=== PATIENT | female | born 1950 | race Caucasian/White ===

== ENCOUNTER 2016-12-12 13:54 | Emergency (ER) | payer MEDICARE ==
[2016-12-12 14:21] VITALS: BP 96/65
--- NOTE | 2016-12-12 14:59 | UC ---
Abdominal Pain Female HPI - HPI Summary HPI Summary: 66 year old presents with acute abdomen. I will send her to the ER. - History of Current Complaint Chief Complaint: UCAbdominalPain Stated Complaint: ABD PAIN/KIDNEY STONES Time Seen by Provider: 12/12/16 14:56 Allergies/Adverse Reactions: Allergies Allergy/AdvReac Type Severity Reaction Status Date / Time Codeine Allergy PASSED OUT Verified 12/12/16 14:06 Diphenhydramine Allergy Swelling Verified 12/12/16 14:06 [From Benadryl] Home Medications: Home Medications Spiriva Inhaler DEVICE* [Tiotropium Inhaler DEVICE*] 1.25 mcg INH DAILY [History Confirmed 12/12/16] buPROPion TAB* [Wellbutrin TAB*] 75 mg PO BID 12/12/16 [History Confirmed ] PMH/Surg Hx/FS Hx/Imm Hx - Surgical History Surgical History: Yes Surgery Procedure, Year, and Place: EXPLORATORY LAPAROTOMY. APPENDECTOMY. CARPAL TUNNEL RELEASE. TUBAL LIGATION. PER DR. BRADLEY'S NOTE. GALL BLADDER REMOVAL - Family History Known Family History: Positive: None - Social History Alcohol Use: None Alcohol Amount: Sober 7 years Substance Use Type: None Smoking Status (MU): Former Smoker Type: Cigarettes Amount Used/How Often: 1/2 PPD Length of Time of Smoking/Using Tobacco: 52 Years Have You Smoked in the Last Year: Yes When Did the Patient Quit Smoking/Using Tobacco: 12/03/16 - Immunization History Most Recent Influenza Vaccination: 2015 Most Recent Tetanus Shot: UTD Most Recent Pneumonia Vaccination: APR 2015 Review of Systems Constitutional: Negative Skin: Negative Eyes: Negative ENT: Negative Respiratory: Negative Cardiovascular: Negative Gastrointestinal: Abdominal Pain Genitourinary: Negative Motor: Negative Neurovascular: Negative Musculoskeletal: Negative Neurological: Negative Psychological: Negative All Other Systems Reviewed And Are Negative: Yes Physical Exam Triage Information Reviewed: Yes Vital Signs: Initial Vital Signs Temp 36.6 C 12/12/16 14:10 Pulse 84 12/12/16 14:10 Resp 18 12/12/16 14:10 BP 96/65 12/12/16 14:10 Pulse Ox 95 12/12/16 14:10 Eye Exam: Normal ENT Exam: Normal Dental Exam: Normal Neck exam: Normal Neck: Positive: 1 Respiratory Exam: Normal Cardiovascular Exam: Normal Abdomen Description: Positive: Distended, Peritoneal Signs Musculoskeletal Exam: Normal Neurological Exam: Normal Psychological Exam: Normal Skin Exam: Normal Abd Pain Female Course/Dx - Differential Dx/Diagnosis Provider Diagnoses: ACUTE ABDOMEN Discharge - Discharge Plan Condition: Guarded Disposition: AGAINST MEDICAL ADVICE Patient Education Materials: Acute Abdominal Pain (ED) Referrals: Daniel Verde DO [Primary Care Provider] -
== END 2016-12-12 15:05 | disposition left against medical advice (07) ==
LOC: UCCORT 13:54
DX: R10.0 Acute abdomen (principal); Z88.5 Allergy status to narcotic agent; Z88.8 Allergy status to other drugs, medicaments and biological substances; Z87.891 Personal history of nicotine dependence
CPT/HCPCS: 81003; 87086; 99213; G0463

== ENCOUNTER 2017-05-03 10:00 | Emergency (ER) | payer MEDICARE ==
[2017-05-03 11:27] VITALS: BP 126/68
== END 2017-05-03 11:34 | disposition left against medical advice (07) ==
LOC: UCCORT 10:00
DX: R09.89 Other specified symptoms and signs involving the circulatory and respiratory systems (principal); R05 Cough; H92.09 Otalgia, unspecified ear; Z53.21 Procedure and treatment not carried out due to patient leaving prior to being seen by health care provider

== ENCOUNTER 2018-02-12 18:29 | Emergency (ER) | payer MEDICARE ==
--- OUTSIDE RECORDS SUMMARY | 2018-02-12 18:46 | XMS REPORT ---
:1950 External Reference #:[id number] Author Organization [facility] Address [address] [address] Phone [phone] Care Team Providers Name Role Phone Jazmine Cabrera PA Care Team Information Specialties Operator Unavailable Payers Type Date Identification Numbers Payment Provider Subscriber Commercial Expires: Policy Number: BCBS o Sanna Flores 2009 [id number] Group Number: [id number] [address] [address] PayID: [id number] SAMMY Banegas [phone] Medigap Part B Effective: 2014 Policy Number: [id number] Medicare Sanna Flores Group Name: [facility] [address] PayID: [id number] [place] [address] Medigap Part B Effective: Policy Number: [facility] Sanna Flores 2014 [id number] Options PayID: [id number] [address] [place] [address] Problems Date Description Provider Status Onset: 03/17/2013 Nondependent alcohol abuse in remission Daniel Verde DO Active Onset: 03/17/2013 Chronic obstructive lung disease Daniel Verde DO Active Onset: 03/17/2013 Insomnia Daniel Verde DO Active Onset: 07/15/2010 Menopausal and postmenopausal disorders Daniel Verde DO Active Onset: 07/15/2010 Vitamin D deficiency Daniel Verde DO Active Onset: 02/28/2005 Moderate major depression, single Daniel Verde DO Active episode Onset: 02/28/2005 Panic disorder without agoraphobia Daniel Verde DO Active Onset: 02/28/2005 Generalized anxiety disorder Daniel Verde DO Active Onset: 02/28/2005 Benign essential hypertension Daniel Verde DO Active Onset: 02/28/2005 Mixed hyperlipidemia Daniel Verde DO Active Onset: 08/22/2014 Gastroesophageal reflux disease Daniel Verde DO Active Onset: 08/22/2014 Diaphragmatic hernia Daniel Verde DO Active Onset: 08/22/2014 Moderate recurrent major depression Daniel Verde DO Active Onset: 08/22/2014 Tobacco user Daniel Verde DO Active Onset: 08/22/2014 Alcohol abuse Daniel Verde DO Active Onset: 03/18/2016 Degenerative joint disease involving Daniel Verde DO Active multiple joints Onset: 09/21/2012 Essential hypertension Active Onset: 09/21/2009 Chronic alcoholism in remission Active Onset: 09/21/2005 Hypercholesterolemia Active Onset: 09/21/1994 Anxiety disorder Active Onset: 09/21/1992 Panic disorder Active Onset: 09/21/1969 Tobacco dependence syndrome Active Onset: 01/17/2015 Esophagitis Active Family History Date Family Member(s) Problem(s) Comments Maternal Grandmother [place] Social History Type Date Description Comments Marital Status Occupation Retired Smoking Patient is a former smoker QUIT 11/26/16 Smoking 12/2016 Patient is a current smoker, STARTED SMOKING AGAIN -10 smokes every day CIGS PER DAY Daily Caffeine Consumes on average 3 cups of coffee per day General Hx Text Allergies, Adverse Reactions, Alerts Date Description Reaction Status Severity Comments 08/07/2014 Codeine active Passed Out 08/07/2014 Benadryl active Swelling. 06/02/2010 Diphenhydramine HCL active Medications Medication Date Status Form Strength Qnty SIG Indications Ordering Provider Nitrofurantoin 02/09 Hx Capsules 100mg 14cap 1 by mouth R30.0 Digiovann Monohyd Macro s twice a a, - day for 7 Ibeth, 02/16 days Phenazopyridine 02/09 Hx Tablets 200mg 6tabs 1 by mouth R30.0 Digiovann HCL /2017 3x/day a, - with food Ibeth, 02/11 for 2 days Ventolin HFA 08/03 Active Aerosol 108(90Bas 8gm 2 puffs Ascencio, /2018 e) every 4-6 Mike, mcg/Act hours as DO needed for cough, wheezing, shortness of breath Bupropion HCL ER 08/03 Active Tablets ER 150mg 60tab 1 tablet Ascencio, (Smoking Det) 12HR s twice Mike, daily DO Fluticasone 05/11 Active Suspension 50mcg/Act 15.80 two sprays H92.01 Ascencio, 0ml in each Mike, nostril DO once daily Combivent 01/24 Active Aerosol 20-100mcg 1unit 1 puff by [email or web address] Ammon, Respimat /2014 /Act s mouth four Daniel, times a DO day Trazodone HCL 11/07 Active Tablets 50mg 90tab take one G47.00 Ascencio, s tablets by Mike, mouth at DO bedtime Omeprazole 08/[address] 40mg 180ca take two K21.0 Ascencio, ps capsules Mike, by mouth DO every day Losartan 06/13 Active Tablets 100-25mg 90tab take one I10 Ascencio, Potassium/Hydroch s tablet by Mike, lorothiazide mouth DO every day Atorvastatin 06/13 Active Tablets 40mg 90tab take one E78.2 Ascencio, Calcium /2014 s tablet by Mike, mouth DO every day Duloxetine HCL Active Caps DR 60mg 180ca 1 by mouth F41.1 Ascencio, / Part ps twice a Mike, day DO F33.1 Quetiapine Active Tablets 25mg 90tabs take one F33.1 Ascencio, Fumarate tablet by Mike, DO mouth at bedtime F41.1 Tizanidine HCL Active Tablets 2mg 30tabs 1 by mouth Ascencio, tid prn Mike, DO Nabumetone Active Tablets 750mg 1 by mouth [place] daily with [facility] Spiriva 07/20/2017 - Hx Aerosol 2.5mcg 4gm 2 puffs in Ascencio, Respimat 11/11/2017 /Act the Mike, DO morning Bupropion HCL 11/24/2016 - Hx Tablets ER 150mg 60tabs Take One Z87 Ammon, ER (SR) 08/03/2017 12HR Tablet By .89 Daniel, DO Mouth 1 Twice Daily F41.1 Bactrim DS 02/26/2016 - Hx Tablets 800-160mg 20tabs 1 by mouth N20.0 Ammon, 03/18/2016 twice a Daniel, day DO Prednisone 11/20/2015 - Hx Tablets 10mg 30tabs 4 by mouth M54.31 Digiovanna, 12/02/2015 every d x Ibeth, 3 days [employer] then 3 by mouth every d x 3 then 2 by mouth every d x 3 then 1 by mouth every d x 3 then stop Naproxen 11/06/2015 - Hx Tablets 550mg 60tabs take one M51.06 Ammon, Sodium 08/14/2016 tablet by Daniel, mouth DO twice a day with food Gabapentin 09/07/2015 - Hx Capsules 100mg 30caps 1 by mouth M51.06 Ammon, 03/30/2017 at bedtime DO Daniel Prednisone 08/28/2015 - Hx Tablets 10mg QS 4 by mouth M54.31 Ammon, 09/09/2015 every d x Daniel, 3 days DO then 3 by mouth every d x 3 then 2 by mouth every d x 3 then 1 by mouth every d x 3 then stop Gabapentin 08/28/2015 - Hx Capsules 300mg 30caps take one M54.31 Ammon , 09/07/2015 capsule by Daniel, mouth once DO at bedtime Zithromax 06/07/2015 - Hx Tablets 500mg 7tabs 1 by mouth H65.03 Ammon, 08/28/2015 every day DO Daniel Medrol (Tate) 06/07/2015 - Hx Tablets 4mg 21tabs use as H65.03 Ammon, 08/28/2015 directed DO Daniel Nabumetone 05/10/2015 - Hx Tablets 750mg 180tabs 1 by mouth M15.0 Ammon, 08/28/2015 twice a Daniel, day with DO food Micro-K 01/24/2015 - Hx Capsules 10Meq 180caps 1 by mouth Ammon, 08/28/2015 ER daily DO Daniel Carafate 08/07/2014 - Hx Tablets 1gm 120tabs 1 by mouth 553.3 Ammon, 12/18/2015 before Daniel, meals and DO at bedtime Alprazolam - Hx Tablets 0.25mg 15tabs 1 by mouth 300.02 Unknown 12/28/2014 daily for anxiety Trazodone HCL - Hx Tablets 50mg 30tabs take 1 1/2 Unknown 11/07/2014 tablet at bedtime (Total 75MG) Seroquel XR - Hx Tablets ER 50mg Unknown 12/20/2014 24HR Celebrex - Hx Capsules 200mg 1 PO Q D M51.06 Unknown 03/30/2017 Immunizations CPT Code Status Date Vaccine Reaction Lot # [id number] Given 07/29/2016 Pneumococcal 23 Immunization Im inj completed, Pt [id number] Adult Or Immunosuppressed tolerated well Patient 40551 Given 03/18/2016 Fluzone Highdose Age 65 And [place] Over Preservative & Antibiotic Free 40300 Given 03/21/2015 Prevnar 13 Pneumococal Given At Pharmacy Conjugate Vaccine [place] 09855 Given 03/21/2015 Fluzone Highdose Age 65 And Given At Pharmacy Over Preservative & [place] Antibiotic Free Vital Signs Date Vital Result Comment 02/09/2018 Body Temperature 97.7 F tympanic Weight 165.44 lb Heart Rate 78 /min BP Systolic 124 mmHg BP Diastolic 70 mmHg Respiratory Rate 18 /min Height 64 inches 5'4" BMI (Body Mass Index) 28.4 kg/m2 11/11/2017 Weight 162.00 lb BP Systolic 120 mmHg BP Diastolic 70 mmHg Height 64 inches 5'4" BMI (Body Mass Index) 27.8 kg/m2 08/03/2017 Weight 161.00 lb Heart Rate 76 /min BP Systolic 148 mmHg BP Diastolic 84 mmHg BP Systolic Recheck 134 mmHg BP Diastolic Recheck 86 mmHg Respiratory Rate 18 /min Height 64 inches 5'4" BMI (Body Mass Index) 27.6 kg/m2 05/11/2017 Body Temperature 98.6 F Weight 169.00 lb Heart Rate 74 /min BP Systolic 140 mmHg BP Diastolic 80 mmHg Respiratory Rate 18 /min 03/30/2017 Weight 169.50 lb Heart Rate 78 /min 72 Reg BP Systolic 118 mmHg BP Diastolic 76 mmHg BP Systolic Recheck 124 mmHg BP Diastolic Recheck 78 mmHg Respiratory Rate 18 /min Height 64.5 inches 5'4.50" BMI (Body Mass Index) 28.6 kg/m2 01/28/2017 Body Temperature 96.8 F Weight 168.00 lb Heart Rate 74 /min BP Systolic 112 mmHg BP Diastolic 58 mmHg Respiratory Rate 16 /min Height 64.5 inches 5'4.50" BMI (Body Mass Index) 28.4 kg/m2 11/27/2016 Weight 164.00 lb Heart Rate 76 /min 72 Reg BP Systolic 114 mmHg BP Diastolic 78 mmHg BP Systolic Recheck 118 mmHg BP Diastolic Recheck 78 mmHg Respiratory Rate 18 /min Height 64.5 inches 5'4.50" BMI (Body Mass Index) 27.7 kg/m2 11/24/2016 Weight 166.12 lb Heart Rate 76 /min BP Systolic 126 mmHg BP Diastolic 78 mmHg Respiratory Rate 18 /min Height 64.5 inches 5'4.50" BMI (Body Mass Index) 28.1 kg/m2 09/04/2016 Weight 164.00 lb Heart Rate 66 /min BP Systolic 118 mmHg BP Diastolic 82 mmHg Respiratory Rate 18 /min Height 64.5 inches 5'4.50" BMI (Body Mass Index) 27.7 kg/m2 07/29/2016 Weight 164.00 lb Heart Rate 66 /min 68 Reg BP Systolic 110 mmHg BP Diastolic 70 mmHg BP Systolic Recheck 110 mmHg BP Diastolic Recheck 72 mmHg Respiratory Rate 18 /min Height 63.75 inches 5'3.75" BMI (Body Mass Index) 28.4 kg/m2 03/18/2016 Weight 156.00 lb Heart Rate 78 /min 72 Reg BP Systolic 130 mmHg BP Diastolic 82 mmHg BP Systolic Recheck 120 mmHg BP Diastolic Recheck 74 mmHg Respiratory Rate 18 /min Height 63.75 inches 5'3.75" BMI (Body Mass Index) 27.0 kg/m2 02/26/2016 Weight 159.00 lb Heart Rate 78 /min BP Systolic 110 mmHg BP Diastolic 70 mmHg Respiratory Rate 18 /min Height 63.75 inches 5'3.75" BMI (Body Mass Index) 27.5 kg/m2 12/18/2015 Weight 161.00 lb Heart Rate 78 /min BP Systolic 114 mmHg BP Diastolic 70 mmHg Respiratory Rate 18 /min Height 63.75 inches 5'3.75" BMI (Body Mass Index) 27.8 kg/m2 11/20/2015 Weight 160.00 lb Heart Rate 72 /min BP Systolic 120 mmHg BP Diastolic 70 mmHg Respiratory Rate 18 /min Height 63.75 inches 5'3.75" BMI (Body Mass Index) 27.7 kg/m2 08/28/2015 Weight 156.00 lb Heart Rate 78 /min BP Systolic 120 mmHg BP Diastolic 72 mmHg Respiratory Rate 18 /min Height 63.75 inches 5'3.75" BMI (Body Mass Index) 27.0 kg/m2 06/07/2015 Weight 161.50 lb Heart Rate 78 /min BP Systolic 110 mmHg BP Diastolic 74 mmHg Respiratory Rate 18 /min Height 64.25 inches 5'4.25" 01/2015 BMI (Body Mass Index) 27.5 kg/m2 05/10/2015 Weight 158.50 lb Heart Rate 78 /min 72 Reg BP Systolic 108 mmHg BP Diastolic 76 mmHg BP Systolic Recheck 120 mmHg BP Diastolic Recheck 78 mmHg Respiratory Rate 24 /min Height 64.25 inches 5'4.25" 01/2015 BMI (Body Mass Index) 27.0 kg/m2 01/24/2015 Weight 152.00 lb Heart Rate 62 /min BP Systolic 44350 mmHg Respiratory Rate 18 /min Height 64.25 inches 5'4.25" O2 % BldC Oximetry 97 % Ra BMI (Body Mass Index) 25.9 kg/m2 12/28/2014 Weight 152.00 lb Heart Rate 72 /min 72 reg BP Systolic 126 mmHg BP Diastolic 74 mmHg BP Systolic Recheck 130 mmHg BP Diastolic Recheck 80 mmHg Respiratory Rate 18 /min Height 64.25 inches 5'4.25" BMI (Body Mass Index) 25.9 kg/m2 12/20/2014 Weight 153.00 lb Heart Rate 72 /min BP Systolic 132 mmHg BP Diastolic 76 mmHg Respiratory Rate 18 /min Height 64.25 inches 5'4.25" BMI (Body Mass Index) 26.1 kg/m2 09/21/2014 Weight 150.00 lb Heart Rate 78 /min BP Systolic 112 mmHg BP Diastolic 78 mmHg Height 64.25 inches BMI (Body Mass Index) 25.5 kg/m2 08/22/2014 Weight 151.00 lb Heart Rate 78 /min 78 reg BP Systolic 120 mmHg BP Diastolic 78 mmHg BP Systolic Recheck 120 mmHg BP Diastolic Recheck 80 mmHg Respiratory Rate 18 /min 08/07/2014 Weight 151.00 lb Heart Rate 66 /min BP Systolic 140 mmHg BP Diastolic 72 mmHg Respiratory Rate 18 /min Results Test Date Test Result H/L Range Note Laboratory test finding 02/09/2018 Urine Culture <pending> CBC With Auto Diff 07/24/2017 WBC 6.9 K/uL 4.1-11.0 1 RBC 5.02 M/uL 4.00-5.40 1 Hemoglobin 14.1 gm/dL 12.0-16.0 1 Hematocrit 42.2 % 36.0-47.0 1 MCV 84.1 fL 80.0-97.0 1 MCH 28.2 pg 27.0-32.0 1 MCHC 33.5 g/dL 32.0-36.0 1 RDW 14.4 % 11.5-14.5 1 PLT Count 274 K/ul 140-400 1 MPV 9.0 FL 7.1-10.7 1 Neutrophil 46.3 % 35.0-75.0 1 Lymphocyte 37.8 % 16.0-52.0 1 Monocyte 12.6 % High 2.0-10.0 1 Eosinophil 2.8 % 0.0-5.0 1 Basophil 0.5 % 0.0-4.0 1 Abs Neutrophils 3.2 K/uL 2.1-8.0 1 Abs Lymphocytes 2.6 K/uL 0.8-5.5 1 Abs Monocytes 0.9 K/uL 0.1-1.0 1 Abs Eosinophils 0.2 K/uL 0.0-0.5 1 Abs Basophils 0.0 K/uL 0.0-0.3 1 Basic (BMP) 07/24/2017 Sodium 144 mmol/L 135-146 1, 2 Potassium 3.8 mmol/L 3.5-5.2 1 Chloride# 103 mmol/L 97-110 1, 3 Carbon Dioxide 33 mmol/L 24-34 1 Glucose 109 mg/dL High 70-105 1 BUN 14 mg/dL 6-26 1 Creatinine 1.2 mg/dL 0.5-1.4 1 Calcium 9.4 mg/dL 8.5-10.2 1 Non Susie Egfr 46 Low >60 1, 4 Susie Egfr 56 Low >60 1, 5 Anion Gap 8 mmol/L 5-15 1, 6 Lipid Treatment 07/24/2017 Cholesterol 178 mg/dL 50-199 1 Triglycerides 201 mg/dL High 30-200 1 HDL 46 mg/dL 35-85 1, 7 Chol/ HDL Ratio 3.9 ratio 3.7-5.6 1 VLDL 40 mg/dL High 2-29 1 LDL (Calc) 92 mg/dL 20-99 1, 8 Alt 16 U/L 3-42 1 Ast 16 U/L 8-42 1 Laboratory test 07/24/2017 Vitamin D 25 34 ng/mL 30-100 1, 9 finding Hydroxy Urine Culture 07/23/2017 Urine Culture KLEBSIELLA PNEUM 10, 11 <SEE NOTE> Quantity 10,000 - 50,000 <SEE NOTE> 10, 12 Ast-[id number] 07/23/2017 Nitrofurantoin <=16 10 Trimethoprim/Sulfamethoxazole <=20 10 Ampicillin >=32 10 Cefazolin <=4 10 Ampicillin/Sulbactam 4 10 Ciprofloxacin <=0.25 10 Piperacillin/Tazobactam 8 10 Ceftazidime <=1 10 Ceftriaxone <=1 10 Cefepime <=1 10 Levofloxacin <=0.12 10 Imipenem <=0.25 10 Gentamicin <=1 10 Tobramycin <=1 10 Urinalysis With Microscopic 02/28/2017 Urine Color YELLOW Yellow 13 Urine Clarity CLOUDY Clear 13 Urine Glucose - Dipstick NEGATIVE mg/dL Negative 13 Urine Bilirubin - Dipstick NEGATIVE Negative 13 Urine Ketone NEGATIVE mg/dL Negative 13 Urine Specific Angie 1.010 1.010-1.030 13 Urine Blood LARGE Negative 13 Urine PH 6.0 Low 6.5-7.5 13 Urine Protein - Dipstick TRACE mg/dL Negative 13 Urine Urobilinogen - Dipstick 0.2 E.U./dL 0.2-1.0 13 Urine Nitrite - Dipstick NEGATIVE Negative 13 Urine Leuk Esterase MODERATE Negative 13 Urine RBC TNTC rbc/hpf High 0-2 13 Urine WBC TNTC wbc/hpf High 0-7 13 Urine Epithelial Cells FEW /lpf None Seen 13 Urine Amorph Sediment SMALL Negative 13 Source: URINE, CLEAN CAT <SEE NOTE> 13, 14 Urine Culture 02/28/2017 Urine Culture ESCHERICHIA COLI 13, 15 Quantity > 100,000 CFU/mL 13, 16 Urine Culture URETHRAL SENIA 13 Quantity > 100,000 CFU/mL 13, 17 Escherichia Coli 02/28/2017 Nitrofurantoin 64 13 Trimethoprim/Sulfamethoxazole >=320 13 Ampicillin >=32 13 Cefazolin <=4 13 Ampicillin/Sulbactam >=32 13 Ciprofloxacin <=0.25 13 Piperacillin/Tazobactam <=4 13 Ceftazidime <=1 13 Ceftriaxone <=1 13 Cefepime <=1 13 Levofloxacin <=0.12 13 Imipenem <=0.25 13 Gentamicin >=16 13 Tobramycin 8 13 Laboratory test 01/28/2017 Urine Culture Microbiology res <SEE 18 finding NOTE> CBC With Auto Diff 01/28/2017 WBC 6.5 K/uL 4.1-11.0 RBC 4.94 M/uL 4.00-5.40 Hemoglobin 13.9 gm/dL 12.0-16.0 Hematocrit 42.7 % 36.0-47.0 MCV 86.4 fL 80.0-97.0 MCH 28.2 pg 27.0-32.0 MCHC 32.6 g/dL 32.0-36.0 RDW 14.5 % 11.5-14.5 PLT Count 213 K/ul 140-400 Neutrophil 46.0 % 35.0-75.0 Lymphocyte 39.1 % 16.0-52.0 Monocyte 11.7 % High 2.0-10.0 Eosinophil 2.5 % 0.0-5.0 Basophil 0.7 % 0.0-4.0 Abs Neutrophils 3.0 K/uL 2.1-8.0 Abs Lymphocytes 2.5 K/uL 0.8-5.5 Abs Monocytes 0.8 K/uL 0.1-1.0 Abs Eosinophils 0.2 K/uL 0.0-0.5 Abs Basophils 0.0 K/uL 0.0-0.3 Comprehensive Met Panel-[facility] 01/28/2017 Sodium 142 mmol/L 135-146 19 Potassium 3.8 mmol/L 3.5-5.2 Chloride# 102 mmol/L 97-110 20 Carbon Dioxide 28 mmol/L 24-34 Glucose 71 mg/dL 70-105 BUN 15 mg/dL 6-26 Creatinine 1.1 mg/dL 0.5-1.4 Calcium 10.1 mg/dL 8.5-10.2 Total Protein 7.1 g/dL 6.0-8.0 Albumin 4.6 g/dL 3.6-4.9 Globulin 2.5 g/dL 2.0-3.5 A/G Ratio 1.8 Ratio 1.0-2.2 Total Bilirubin 0.5 mg/dL 0.1-1.3 Alkaline Phosphatase 99 U/L 24-140 Alt 12 U/L 3-42 Ast 17 U/L 8-42 Susie Egfr 59 Low >60 21 Non Susie Egfr 48 Low >60 22 Anion Gap 12 mmol/L 7-16 23 Protime 01/28/2017 Protime 12.3 seconds 12.0-14.4 24 Inr 0.9 0.9-1.1 24, 25 Laboratory test 01/28/2017 Act Partial 29.6 seconds 23.4-35.0 24, 26 finding Thrombo Time Urine Culture 12/18/2016 Urine Culture URETHRAL SENIA 27 Quantity 10,000 - 50,000 <SEE NOTE> 27, 28 Laboratory test finding 12/12/2016 Occult Blood,Stool NEGATIVE Negative 29, 30 Urinalysis With Microscopic 12/12/2016 Urine Color YELLOW Yellow 29 Urine Clarity CLEAR Clear 29 Urine Glucose - Dipstick NEGATIVE mg/dL Negative 29 Urine Bilirubin - Dipstick NEGATIVE Negative 29 Urine Ketone NEGATIVE mg/dL Negative 29 Urine Specific Angie 1.015 1.010-1.030 29 Urine Blood LARGE Negative 29 Urine PH 5.5 Low 6.5-7.5 29 Urine Protein - Dipstick 30 mg/dL High Negative 29 Urine Urobilinogen - Dipstick 0.2 E.U./dL 0.2-1.0 29 Urine Nitrite - Dipstick NEGATIVE Negative 29 Urine Leuk Esterase SMALL Negative 29 Urine RBC >50 rbc/hpf High 0-2 29 Urine WBC > 50 wbc/hpf High 0-7 29 Urine Epithelial Cells VERY FEW /lpf None Seen 29 Urine Bacteria VERY FEW None Seen 29 Urine Hyaline Cast 0-2 #/lpf None Seen 29 Urine Mucus SMALL None Seen 29 Source: URINE, CLEAN CAT <SEE NOTE> 29, 31 Urine Culture 12/12/2016 Urine Culture ESCHERICHIA COLI 29, 32 Quantity 10,000 - 50,000 <SEE NOTE> 29, 33 Urine Culture MIXED URETHRAL F <SEE NOTE> 29, 34 Quantity 10,000 - 50,000 <SEE NOTE> 29, 35 Escherichia Coli 12/12/2016 Nitrofurantoin <=16 29 Trimethoprim/Sulfamethoxazole <=20 29 Ampicillin >=32 29 Cefazolin <=4 29 Ampicillin/Sulbactam >=32 29 Ciprofloxacin <=0.25 29 Piperacillin/Tazobactam <=4 29 Ceftazidime <=1 29 Ceftriaxone <=1 29 Cefepime <=1 29 Levofloxacin <=0.12 29 Imipenem <=0.25 29 Gentamicin <=1 29 Tobramycin <=1 29 Lactic Acid 12/12/2016 Lactic Acid 0.5 mmol/L 0.4-1.9 29 Lab Reflex >2.0 for Sepsis? Y 29 Laboratory test finding 12/12/2016 Lipase 104 U/L 73-393 29 CBS W/Automated Diff 12/12/2016 White Blood Count 8.0 K/uL 3.1-10.7 29 Red Blood Count 4.78 M/uL 3.90-5.40 29 Hemoglobin 13.8 gm/dL 11.6-15.8 29 Hematocrit 40.6 % 36.0-46.1 29 Mean Cell Volume 84.9 fl 80.9-99.0 29 Mean Corpuscular HGB 28.9 pg 25.9-32.7 29 Mean Corpuscular HGB Conc 34.0 g/dL 30.8-34.3 29 Platelet Count 231 K/uL 150-400 29 Red Cell Distri Width SD 39.6 fl 3-47 29 Red Cell Distri Width %CV 13.1 % 11.7-14.4 29 Mean Platelet Volume 10.7 fL 8.9-12.4 29 Neut% 59.1 % 40.4-72.8 29 Lymph % 27.8 % 20.0-42.0 29 Ogle % 10.9 % 4.3-13.2 29 Eo% 1.9 % 0.0-6.6 29 Bas% 0.3 % 0.0-1.1 29 Neut# 4.70 K/uL 1.8-7.0 29 Lymph # 2.21 K/uL 1.0-4.0 29 Ogle # 0.87 K/uL 0.3-0.9 29 Eos # 0.15 K/uL 0.0-0.5 29 Baso # 0.02 K/uL 0.0-0.1 29 CBC With Auto Diff 11/21/2016 WBC 6.8 K/uL 4.1-11.0 36 RBC 4.76 M/uL 4.00-5.40 36 Hemoglobin 13.5 gm/dL 12.0-16.0 36 Hematocrit 40.5 % 36.0-47.0 36 MCV 85.1 fL 80.0-97.0 36 MCH 28.4 pg 27.0-32.0 36 MCHC 33.3 g/dL 32.0-36.0 36 RDW 14.1 % 11.5-14.5 36 PLT Count 211 K/ul 140-400 36 Neutrophil 59.9 % 35.0-75.0 36 Lymphocyte 29.3 % 16.0-52.0 36 Monocyte 8.1 % 2.0-10.0 36 Eosinophil 2.1 % 0.0-5.0 36 Basophil 0.6 % 0.0-4.0 36 Abs Neutrophils 4.1 K/uL 2.1-8.0 36 Abs Lymphocytes 2.0 K/uL 0.8-5.5 36 Abs Monocytes 0.6 K/uL 0.1-1.0 36 Abs Eosinophils 0.1 K/uL 0.0-0.5 36 Abs Basophils 0.0 K/uL 0.0-0.3 36 Basic (BMP) 11/21/2016 Sodium 145 mmol/L 135-146 36, 37 Potassium 3.8 mmol/L 3.5-5.2 36 Chloride# 107 mmol/L 97-110 36, 38 Carbon Dioxide 30 mmol/L 24-34 36 Glucose 100 mg/dL 70-105 36 BUN 12 mg/dL 6-26 36 Creatinine 1.0 mg/dL 0.5-1.4 36 Calcium 9.6 mg/dL 8.5-10.2 36 Non Susie Egfr 55 Low >60 36, 39 Susie Egfr >60 >60 36, 40 Anion Gap 12 mmol/L 7-16 36, 41 Lipid Treatment 11/21/2016 Cholesterol 203 mg/dL High 50-199 36 Triglycerides 225 mg/dL High 30-150 36 HDL 40 mg/dL Low 45-85 36, 42 Chol/ HDL Ratio 5.1 ratio 3.7-5.6 36 VLDL 45 mg/dL High 2-29 36 LDL (Calc) 119 mg/dL 20-129 36, 43 Alt 12 U/L 3-42 36 Ast 13 U/L 8-42 36 Laboratory test finding 11/21/2016 Vit D,25 Hydroxy 37 ng/mL 31-100 36 Basic (BMP) 03/17/2016 Sodium 142 mmol/L 134-142 36 Potassium 3.7 mmol/L 3.5-5.2 36 Chloride 104 mmol/L 97-109 36 Carbon Dioxide 33 mmol/L 24-34 36 Glucose 89 mg/dL 70-105 36 BUN 14 mg/dL 6-26 36 Creatinine 1.0 mg/dL 0.5-1.4 36 Calcium 9.4 mg/dL 8.5-10.2 36 Anion Gap 9 mmol/L 6-14 36 Non Susie Egfr 54 Low >60 36, 44 Susie Egfr >60 >60 36, 45 Lipid Treatment 03/17/2016 Cholesterol 194 mg/dL 50-199 36 Triglycerides 213 mg/dL High 30-200 36 HDL 39 mg/dL Low 45-85 36, 46 Chol/ HDL Ratio 5.0 ratio 3.7-5.6 36 VLDL 43 mg/dL High 2-29 36 LDL (Calc) 112 mg/dL 20-129 36, 47 Alt 10 U/L 3-42 36 Ast 13 U/L 8-42 36 Laboratory test finding 03/17/2016 Vit D,25 Hydroxy 50 ng/mL 31-100 36 TSH 2.42 uIU/mL 0.35-4.94 36 Vitamin B12 246 pg/mL 180-914 36 Iron Panel 03/17/2016 Iron, Total 69 g/dL 50-170 36 Transferrin 287.7 mg/dL 203.0-362.0 36 Tibc (calc) 403 g/dL 261-478 36 % Iron Saturation 17.1 % 13.0-45.0 36 CBC With Auto Diff 03/17/2016 WBC 5.4 K/uL 4.1-11.0 36 RBC 4.55 M/uL 4.00-5.40 36 Hemoglobin 13.2 gm/dL 12.0-16.0 36 Hematocrit 38.7 % 36.0-47.0 36 MCV 85.2 fL 80.0-97.0 36 MCH 29.0 pg 27.0-32.0 36 MCHC 34.0 g/dL 32.0-36.0 36 RDW 13.3 % 11.5-14.5 36 PLT Count 214 K/ul 140-400 36 Neutrophil 33.1 % Low 35.0-75.0 36 Lymphocyte 51.8 % 16.0-52.0 36 Monocyte 10.8 % High 2.0-10.0 36 Eosinophil 3.7 % 0.0-5.0 36 Basophil 0.6 % 0.0-4.0 36 Abs Neutrophils 1.8 K/uL Low 2.1-8.0 36 Abs Lymphocytes 2.8 K/uL 0.8-5.5 36 Abs Monocytes 0.6 K/uL 0.1-1.0 36 Abs Eosinophils 0.2 K/uL 0.0-0.5 36 Abs Basophils 0.0 K/uL 0.0-0.3 36 Laboratory test 02/27/2016 Urine Culture Microbiology res <SEE 48 finding NOTE> CBC With Auto Diff 04/24/2015 WBC 5.9 K/uL 4.1-11.0 36 RBC 4.67 M/uL 4.00-5.40 36 Hemoglobin 13.9 gm/dL 12.0-16.0 36 Hematocrit 41.5 % 36.0-47.0 36 MCV 88.9 fL 80.0-97.0 36 MCH 29.8 pg 27.0-32.0 36 MCHC 33.6 g/dL 32.0-36.0 36 RDW 13.5 % 11.5-14.5 36 PLT Count 188 K/ul 140-400 36 Neutrophil 49.7 % 35.0-75.0 36 Lymphocyte 37.4 % 16.0-52.0 36 Monocyte 9.4 % 2.0-10.0 36 Eosinophil 2.8 % 0.0-5.0 36 Basophil 0.7 % 0.0-4.0 36 Abs Neutrophils 2.9 K/uL 2.1-8.0 36 Abs Lymphocytes 2.2 K/uL 0.8-5.5 36 Abmon 0.6 K/uL 0.1-1.0 36 Abs Eosinophils 0.2 K/uL 0.0-0.5 36 Abs Basophils 0.0 K/uL 0.0-0.3 36 Laboratory test finding 04/24/2015 Vit D,25 Hydroxy 69 ng/mL 31-100 36 Lipid Treatment 04/24/2015 Cholesterol 196 mg/dL 50-199 36 Triglycerides 141 mg/dL 30-150 36 HDL 43 mg/dL Low 45-85 36, 49 Chol/ HDL Ratio 4.6 ratio 3.7-5.6 36 VLDL 28 mg/dL 2-29 36 LDL (Calc) 125 mg/dL 20-129 36, 50 Alt 13 U/L 3-42 36 Ast 16 U/L 8-42 36 Basic (BMP) 04/24/2015 Sodium 141 mmol/L 134-142 36 Potassium 4.1 mmol/L 3.5-5.2 36 Chloride 106 mmol/L 97-109 36 Carbon Dioxide 32 mmol/L 24-34 36 Glucose 94 mg/dL 70-105 36 BUN 15 mg/dL 6-26 36 Creatinine 0.9 mg/dL 0.5-1.4 36 Calcium 9.5 mg/dL 8.5-10.2 36 Anion Gap 7 mmol/L 6-14 36 Non Susie Egfr >60 >60 36, 51 Susie Egfr >60 >60 36, 52 HCV Rna Quant PCR 02/23/2015 HCV Rna Quant PCR <1.2 logIU 53 HCV Rna Real PCR <15 IU/mL HCV Rna Quant Inter Not Detected 54 Eer HCV Quant RT PCR See Note 55 Basic (BMP) 01/24/2015 Sodium 138 mmol/L 134-142 Potassium 4.4 mmol/L 3.5-5.2 Chloride 101 mmol/L 97-109 Carbon Dioxide 29 mmol/L 24-34 Glucose 83 mg/dL 70-105 BUN 10 mg/dL 6-26 Creatinine 0.9 mg/dL 0.5-1.4 Calcium 9.8 mg/dL 8.5-10.2 Anion Gap 12 mmol/L 6-14 Non Susie Egfr >60 >60 56 Susie Egfr >60 >60 57 Laboratory test 01/18/2015 Troponin-I < 0.015 ng/mL 58 finding Laboratory test 01/17/2015 D-Dimer, Quantitative 0.28 ug/mL 59 finding Laboratory test 01/17/2015 Alanine Aminotransferase 23 12-78 finding (Alt/SGPT) Aspartate Amino Transf (Ast/Sgot) 12 Low 15-37 BUN/Creatinine Ratio 13.3 Basophils # (Auto) 0.02 0.0-0.1 Basophils (%) (Auto) 0.2 0.0-1.1 Carbon Dioxide Level 32 21-32 Eosinophils # (Auto) 0.20 0.0-0.5 Eosinophils (%) (Auto) 2.0 0.0-6.6 Lymphocytes # (Auto) 4.64 1.8-7.0 Lymphocytes (%) (Auto) 46.3 High 17.0-46.1 Mean Corpuscular Hemoglobin 29.0 25.9-32.7 Mean Corpuscular Hemoglobin Concent 33.7 30.8-34.3 Mean Corpuscular Volume 86.0 80.9-99.0 Monocytes # (Auto) 0.98 High 0.3-0.9 Monocytes (%) (Auto) 9.8 4.3-13.2 Neutrophils # (Auto) 4.18 1.0-7.0 Neutrophils (%) (Auto) 41.7 40.4-72.8 RDW Coefficient of Variation 12.6 11.7-14.4 Red Cell Distribution Width 38.8 3-47 Sodium Level 139 136-145 Total Bilirubin 0.3 0.2-1.0 CBC W/Automated Diff 01/17/2015 White Blood Count 10.0 K/uL 3.1-10.7 Red Blood Count 4.72 M/uL 3.90-5.40 Hemoglobin 13.7 gm/dL 11.6-15.8 Hematocrit 40.6 % 36.0-46.1 Mean Cell Volume 86.0 fl 80.9-99.0 Mean Corpuscular HGB 29.0 pg 25.9-32.7 Mean Corpuscular HGB Conc 33.7 g/dL 30.8-34.3 Platelet Count 233 K/uL 155-360 Red Cell Distri Width SD 38.8 fl 3-47 Red Cell Distri Width %CV 12.6 % 11.7-14.4 Mean Platelet Volume 10.5 fL 8.9-12.4 Neut% 41.7 % 40.4-72.8 Lymph % 46.3 % High 17.0-46.1 Ogle % 9.8 % 4.3-13.2 Eo% 2.0 % 0.0-6.6 Bas% 0.2 % 0.0-1.1 Neut# 4.18 K/uL 1.0-7.0 Lymph # 4.64 K/uL 1.8-7.0 Ogle # 0.98 K/uL High 0.3-0.9 Eos # 0.20 K/uL 0.0-0.5 Baso # 0.02 K/uL 0.0-0.1 Laboratory test finding 01/17/2015 Troponin-I < 0.015 ng/mL 60 Comprehensive Metabolic Panel 01/17/2015 Glucose 75 mg/dL 74-106 BUN 12 mg/dL 7-18 Creatinine 0.9 mg/dL 0.6-1.3 Glom Filtration Rate, Estimate >60 mL/min >60 If >60 mL/min >60 61 BUN/Creat 13.3 ratio Sodium 139 mmol/L 136-145 Potassium 3.0 mmol/L Low 3.5-5.1 Chloride 104 mmol/L 98-107 Carbon Dioxide 32 mmol/L 21-32 Anion Gap 3 mEq/L Low 8-16 Calcium 8.8 mg/dL 8.5-10.1 Total Protein 6.9 g/dL 6.4-8.2 Albumin 3.4 g/dL 3.4-5.0 Globulin 3.5 g/dL 1.9-4.3 Alb/Glob 1.0 ratio Bilirubin,Total 0.3 mg/dL 0.2-1.0 Sgot/Ast 12 U/L Low 15-37 62 SGPT/Alt 23 U/L 12-78 Alkaline Phosphatase 97 U/L 45-117 Laboratory test finding 08/15/2014 Vit D,25 Hydroxy 50 ng/mL 31-100 63 Basic (BMP) 08/15/2014 Sodium 141 mmol/L 134-142 63 Potassium 4.0 mmol/L 3.5-5.2 63 Chloride 102 mmol/L 97-109 63 Carbon Dioxide 28 mmol/L 24-34 63 Glucose 90 mg/dL 70-105 63 BUN 17 mg/dL 6-26 63 Creatinine 0.9 mg/dL 0.5-1.4 63 Calcium 9.5 mg/dL 8.5-10.2 63 Anion Gap 15 mmol/L High 6-14 63 Non Susie Egfr >60 >60 63, 64 Susie Egfr >60 >60 63, 65 Lipid Treatment 08/15/2014 Cholesterol 186 mg/dL 50-199 63 Triglycerides 228 mg/dL High 30-150 63 HDL 42 mg/dL Low 45-85 63, 66 Chol/ HDL Ratio 4.4 ratio 3.7-5.6 63 VLDL 46 mg/dL High 2-29 63 LDL (Calc) 98 mg/dL 20-99 63, 67 Alt 14 U/L 3-42 63 Ast 15 U/L 8-42 63 1 SCHEDULE 1 WEEK PRIOR TO NEXT VISIT 2 Updated reference range on new analyzer 3 Updated reference range on new analyzer 4 Concerning GFR Guidelines: Normal function or mild renal disease, if clinically at risk: >/=60 mL/min Moderately decreased: 30-59 Severely decreased: 15-29 Renal failure: <15 Glomerular Filtration Rate (GFR) is estimated based on the MDRD equation, which assumes a steady state for creatinine as recommended by the National Kidney Disease Education Program in conjunction with the National Institutes of Health and the National Kidney Foundation. Clinical conditions in which it may be necessary to measure GFR by using clearance methods include extremes of age and body size, severe malnutrition or obesity, diseases of skeletal muscle, paraplegia or quadriplegia, vegetarian diet, rapidly changing kidney function, and calculation of the dose of potentially toxic drugs that are excreted by the kidneys. 5 Concerning GFR Guidelines for Americans: Normal function or mild renal disease, if clinically at risk: >/=60 mL/min Moderately decreased: 30-59 Severely decreased: 15-29 Renal failure: <15 6 Updated Reference Range 7 Per NCEP ATP III Guidelines: Results lower than 40 mg/dL are suggestive of increased risk for coronary artery disease. Results > or=to 60 mg/dL are considered a negative risk factor. 8 Per NCEP ATP III Guidelines: Normal Population <130 Patients with medical conditions: CHD/DM Optimal: <100 Borderline high: 130-159 High: 160-189 Very high: >189 9 Clinical Guidelines for recommended serum 25(OH)Vitamin D Deficient at less than 20 ng/mL Insufficient at 20 to <30 ng/mL Sufficient at 30-100 ng/mL Toxicity at greater than 100 ng/mL 10 R31.9 11 KLEBSIELLA PNEUMONIAE 12 10,000 - 50,000 CFU/mL 13 urinary tract ISSUES 14 URINE, CLEAN CATCH 15 ESCHERICHIA COLI 16 > 100,000 CFU/mL 17 > 100,000 CFU/mL 18 Microbiology results FINAL RESULT 50,000 CFU/ML Mixed urogenital senia consistent with contamination. Request fresh specimen if indicated. 19 Updated reference range on new analyzer 20 Updated reference range on new analyzer 21 Concerning GFR Guidelines for Americans: Normal function or mild renal disease, if clinically at risk: >/=60 mL/min Moderately decreased: 30-59 Severely decreased: 15-29 Renal failure: <15 22 Concerning GFR Guidelines: Normal function or mild renal disease, if clinically at risk: >/=60 mL/min Moderately decreased: 30-59 Severely decreased: 15-29 Renal failure: <15 Glomerular Filtration Rate (GFR) is estimated based on the MDRD equation, which assumes a steady state for creatinine as recommended by the National Kidney Disease Education Program in conjunction with the National Institutes of Health and the National Kidney Foundation. Clinical conditions in which it may be necessary to measure GFR by using clearance methods include extremes of age and body size, severe malnutrition or obesity, diseases of skeletal muscle, paraplegia or quadriplegia, vegetarian diet, rapidly changing kidney function, and calculation of the dose of potentially toxic drugs that are excreted by the kidneys. 23 Updated reference range on new analyzer 24 Z01.818 25 THERAPEUTIC INR RANGE: 2.0 - 3.0 DVT, Pulmonary embolus, prophylaxis against venous thrombosis or systemic embolization in high risk patients. 2.5 - 3.5 Mechanical heart valves 26 Is patient on heparin protocol? <Blank> Is patient on anticoagulants? <Blank> 27 N39.0 R31.9 28 10,000 - 50,000 CFU/mL 29 L SIDED PAIN/BACK, SENT BY CC 30 Method: [employer] Hemoccult Card 31 URINE, CLEAN CATCH 32 ESCHERICHIA COLI 33 10,000 - 50,000 CFU/mL 34 MIXED URETHRAL SENIA 35 10,000 - 50,000 CFU/mL 36 SCHEDULE 1 WEEK PRIOR TO NEXT VISIT 37 Updated reference range on new analyzer 38 Updated reference range on new analyzer 39 Concerning GFR Guidelines: Normal function or mild renal disease, if clinically at risk: >/=60 mL/min Moderately decreased: 30-59 Severely decreased: 15-29 Renal failure: <15 Glomerular Filtration Rate (GFR) is estimated based on the MDRD equation, which assumes a steady state for creatinine as recommended by the National Kidney Disease Education Program in conjunction with the National Institutes of Health and the National Kidney Foundation. Clinical conditions in which it may be necessary to measure GFR by using clearance methods include extremes of age and body size, severe malnutrition or obesity, diseases of skeletal muscle, paraplegia or quadriplegia, vegetarian diet, rapidly changing kidney function, and calculation of the dose of potentially toxic drugs that are excreted by the kidneys. 40 Concerning GFR Guidelines for Americans: Normal function or mild renal disease, if clinically at risk: >/=60 mL/min Moderately decreased: 30-59 Severely decreased: 15-29 Renal failure: <15 41 Updated reference range on new analyzer 42 Per NCEP ATP III Guidelines: Results lower than 40 mg/dL are suggestive of increased risk for coronary artery disease. Results > or=to 60 mg/dL are considered a negative risk factor. 43 Per NCEP ATP III Guidelines: Normal Population <130 Patients with medical conditions: CHD/DM Optimal: <100 Borderline high: 130-159 High: 160-189 Very high: >189 44 Concerning GFR Guidelines: Normal function or mild renal disease, if clinically at risk: >/=60 mL/min Moderately decreased: 30-59 Severely decreased: 15-29 Renal failure: <15 Glomerular Filtration Rate (GFR) is estimated based on the MDRD equation, which assumes a steady state for creatinine as recommended by the National Kidney Disease Education Program in conjunction with the National Institutes of Health and the National Kidney Foundation. Clinical conditions in which it may be necessary to measure GFR by using clearance methods include extremes of age and body size, severe malnutrition or obesity, diseases of skeletal muscle, paraplegia or quadriplegia, vegetarian diet, rapidly changing kidney function, and calculation of the dose of potentially toxic drugs that are excreted by the kidneys. 45 Concerning GFR Guidelines for Americans: Normal function or mild renal disease, if clinically at risk: >/=60 mL/min Moderately decreased: 30-59 Severely decreased: 15-29 Renal failure: <15 46 Per NCEP ATP III Guidelines: Results lower than 40 mg/dL are suggestive of increased risk for coronary artery disease. Results > or=to 60 mg/dL are considered a negative risk factor. 47 Per NCEP ATP III Guidelines: Normal Population <130 Patients with medical conditions: CHD/DM Optimal: <100 Borderline high: 130-159 High: 160-189 Very high: >189 48 Microbiology results SOURCE URINE FINAL RESULT No growth 49 Per NCEP ATP III Guidelines: Results lower than 40 mg/dL are suggestive of increased risk for coronary artery disease. Results > or=to 60 mg/dL are considered a negative risk factor. 50 Per NCEP ATP III Guidelines: Normal Population <130 Patients with medical conditions: CHD/DM Optimal: <100 Borderline high: 130-159 High: 160-189 Very high: >189 51 Concerning GFR Guidelines: Normal function or mild renal disease, if clinically at risk: >/=60 mL/min Moderately decreased: 30-59 Severely decreased: 15-29 Renal failure: <15 Glomerular Filtration Rate (GFR) is estimated based on the MDRD equation, which assumes a steady state for creatinine as recommended by the National Kidney Disease Education Program in conjunction with the National Institutes of Health and the National Kidney Foundation. Clinical conditions in which it may be necessary to measure GFR by using clearance methods include extremes of age and body size, severe malnutrition or obesity, diseases of skeletal muscle, paraplegia or quadriplegia, vegetarian diet, rapidly changing kidney function, and calculation of the dose of potentially toxic drugs that are excreted by the kidneys. 52 Concerning GFR Guidelines for Americans: Normal function or mild renal disease, if clinically at risk: >/=60 mL/min Moderately decreased: 30-59 Severely decreased: 15-29 Renal failure: <15 53 INTERPRETIVE INFORMATION: Hepatitis C Virus by Quantitative PCR The quantitative range of this assay is 1.2 - 8.0 log IU/mL (15- 100,000,000 IU/mL). Limit of detection (LOD): 15 IU/mL (1.2 log IU/mL) LOD values do not apply to diluted specimens. An interpretation of "Not Detected" does not rule out the presence of PCR inhibitors in the patient specimen or hepatitis C virus RNA concentrations below the level of detection of the test. Care should be taken when interpreting any single viral load determination. This test should not be used for blood donor screening, associated re-entry protocols, or for screening Human Cell, Tissues and Cellular Tissue-Based Products (HCT/P). 54 Reference range: Not Detected 55 To download an enhanced report for this test go to: [email or web address] Performed by [facility], [address] [place] [id number] [email or web address], Ag Restrepo MD, Lab. Director 56 Concerning GFR Guidelines: Normal function or mild renal disease, if clinically at risk: >/=60 mL/min Moderately decreased: 30-59 Severely decreased: 15-29 Renal failure: <15 Glomerular Filtration Rate (GFR) is estimated based on the MDRD equation, which assumes a steady state for creatinine as recommended by the National Kidney Disease Education Program in conjunction with the National Institutes of Health and the National Kidney Foundation. Clinical conditions in which it may be necessary to measure GFR by using clearance methods include extremes of age and body size, severe malnutrition or obesity, diseases of skeletal muscle, paraplegia or quadriplegia, vegetarian diet, rapidly changing kidney function, and calculation of the dose of potentially toxic drugs that are excreted by the kidneys. 57 Concerning GFR Guidelines for Americans: Normal function or mild renal disease, if clinically at risk: >/=60 mL/min Moderately decreased: 30-59 Severely decreased: 15-29 Renal failure: <15 58 0.0 - 0.045 ng/mL: Normal 0.046 - 0.5 ng/mL: Suggestive 0.6 - 1.5 ng/mL: Consistent 59 <=0.49 ug/mL - Low likelihood of DIC, DVT or Pulmonary Embolism >0.49 ug/mL - Additional testing should be done to rule out DIC, DVT, or Pulmonary embolism as clinically indicated. ([facility] has established a 97.89% negative predictive value for thrombotic disease when a cutoff value of 0.5 ug/mL is used.) 60 0.0 - 0.045 ng/mL: Normal 0.046 - 0.5 ng/mL: Suggestive 0.6 - 1.5 ng/mL: Consistent 61 Note: Persistent reduction for 3 months or more in an eGFR <60 mL/min/1.73 m2 defines CKD. Patients with eGFR values >/=60 mL/min/1.73 m2 may also have CKD if evidence of persistent proteinuria is present. The original MDRD equation for estimated GFR is not valid for patients less than 18 years of age. Additional information may be found at www.kdoqi.org. 62 Values below the stated reference ranges of AST and ALT can be seen in normal populations. Clinical correlation is suggested. 63 SCHEDULE 1 WEEK PRIOR TO VISIT 64 Concerning GFR Guidelines: Normal function or mild renal disease, if clinically at risk: >/=60 mL/min Moderately decreased: 30-59 Severely decreased: 15-29 Renal failure: <15 Glomerular Filtration Rate (GFR) is estimated based on the MDRD equation, which assumes a steady state for creatinine as recommended by the National Kidney Disease Education Program in conjunction with the National Institutes of Health and the National Kidney Foundation. Clinical conditions in which it may be necessary to measure GFR by using clearance methods include extremes of age and body size, severe malnutrition or obesity, diseases of skeletal muscle, paraplegia or quadriplegia, vegetarian diet, rapidly changing kidney function, and calculation of the dose of potentially toxic drugs that are excreted by the kidneys. 65 Concerning GFR Guidelines for Americans: Normal function or mild renal disease, if clinically at risk: >/=60 mL/min Moderately decreased: 30-59 Severely decreased: 15-29 Renal failure: <15 66 Per NCEP ATP III Guidelines: Results lower than 40 mg/dL are suggestive of increased risk for coronary artery disease. Results > or=to 60 mg/dL are considered a negative risk factor. 67 Per NCEP ATP III Guidelines: Normal Population <130 Patients with medical conditions: CHD/DM Optimal: <100 Borderline high: 130-159 High: 160-189 Very high: >189 Procedures Date CPT Code Description Status Comment 11/10/2017 Colonoscopy Completed Document: 11/10/17 - Colonoscopy 05/11/2017 71753 Remove Impact Cerumen Completed Irrigation/Lavage 04/28/2017 Mammogram Completed Document: 03/12/15 - Mammogram Result Document: 03/24/16 - Digital Mammography Screening Document: 04/28/17 - Digital Mammography Screening 09/04/2016 16902 Electrocardiogram Complete Completed 09/04/2016 15664 X-Ray Chest Two Views Frontal & Completed Lateral 03/24/2016 Mammogram Completed Document: 03/24/16 - Digital Mammography Screening 05/10/2015 81632 X-Ray Hip Complete Two Views Completed 05/10/2015 99484 X-Ray Spine Lumbosacral Ap & Completed Lateral 03/12/2015 Mammogram Completed 08/07/2014 25509 Electrocardiogram Complete Completed 06/25/2011 Bone Mineral Density Test Completed Encounters Type Date Location Provider CPT E/M Dx Office Visit 11/11/2017 3:30p [facility] [address] J44.9 F33.1 E78.2 I10 F17.210 K21.0 F41.1 Z68.27 Office Visit 08/03/2017 11:00a [facility] [address] J44.9 F33.1 E78.2 E55.9 I10 F17.210 K21.0 F41.9 F10.10 F41.1 Z68.27 Office Visit 05/11/2017 4:00p [facility] [address] H92.01 H61.21 Office Visit 03/30/2017 10:00a [facility] [place] [address] I10 E78.2 E55.9 K21.0 J44.9 F17.200 F10.10 N95.9 F33.1 G47.00 M15.0 F41.1 Z12.31 Z86.010 Office Visit 01/28/2017 11:00a [facility] [address] Z01.818 R31.9 Office Visit 11/27/2016 10:00a [place] [address] I10 E78.2 E55.9 G56.00 K21.0 J44.9 F17.200 F10.10 N95.9 F33.1 G47.00 M15.0 Office Visit 11/24/2016 1:45p [place] [address] F41.1 Z87.891 Office Visit 09/04/2016 2:00[place] [address] Z01.818 G56.00 I10 E78.2 E55.9 F41.1 K21.0 J44.9 F17.200 F10.10 N95.9 F33.1 G47.00 M15.0 Office Visit 07/29/2016 11:15[place] [address] I10 E78.2 E55.9 F41.1 K21.0 J44.9 F17.200 F10.10 N95.9 F33.1 G47.00 M15.0 Z00.00 Z23 Z68.28 Office Visit 03/18/2016 1:45p [place] [address] I10 E78.2 E55.9 F41.1 K21.0 J44.9 F17.200 F10.10 N95.9 F33.1 G47.00 M15.0 Z12.31 Office Visit 02/26/2016 2:30[place] [address] N20.0 R30.0 Office Visit 12/18/2015 1:45[place] [address] M51.06 Office Visit 11/20/2015 11:00a [facility] [place] [address] M54.31 Office Visit 08/28/2015 4:15p [place] [address] M54.31 Office Visit 06/07/2015 8:15a [facility] [place] [address] H65.03 Office Visit 05/10/2015 1:45p [facility] [place] [address] I10 E78.2 E55.9 F41.1 K21.0 J44.9 F17.200 F10.10 N95.9 F33.1 G47.00 M15.0 Office Visit 01/24/2015 9:30a [facility] [address] 300.02 276.8 786.59 530.11 496 Office Visit 12/28/2014 1:15p [facility] [address] 300.02 305.1 305.00 401.1 272.2 530.81 553.3 496 627.9 296.32 780.52 268.9 Office Visit 12/20/2014 1:00p [facility] [place] [address] 300.02 305.1 305.00 Office Visit 08/22/2014 1:00p [facility] [place] [address] 401.1 272.2 530.81 553.3 496 627.9 296.32 300.01 300.02 780.52 305.1 305.00 Office Visit 08/07/2014 2:30p [facility] [place] [address] 553.3 530.11 786.59 Plan of Care Future Appointment(s):03/05/2018 8:25 am - Schedule, Laboratory at [facility]2017 1:15 pm - Jazmine Cabrera PA at [facility]02/09/2018 - Ibeth Graf NPR30.0 DysuriaNew Medication:Nitrofurantoin Monohyd Macro 100 mgPhenazopyridine HCL 200 mgComments:Increase fluid intake.Empty bladder completely and frequently.Empty bladder after sexual activity.Tylenol or ibuprofen(with food) prn.Will notify of culture result. Eat yogurt while on antibiotic. May use Phenazopyridine for 2 days.Follow up:PRN for increased or persistent symptoms
--- OUTSIDE RECORDS SUMMARY | 2018-02-12 18:46 | XMS REPORT ---
:1950 External Reference #:[id number] Author Organization [facility] Address [address] [place] [id number] Phone [phone] Care Team Providers Name Role Phone Jazmine Cabrera PA-C Care Team Information Wheel Aligner Unavailable Jazmine Cabrera PA-C Primary Care Physician Unavailable Payers Type Date Identification Numbers Payment Provider Subscriber Medicare Primary Effective: Policy Number: Medicare Sanna Flores 2014 [id number] PayID: [id number] [address] [place] [address] Medigap Part B Effective: Policy Number: [facility] Supplemental Sanna De Jesuss 2014 [id number] Plan PayID: [id number] [address] [place] [address] Problems Date Description Provider Status Onset: 12/18/2016 Hematuria syndrome Eric Dennis MD Active Onset: 12/18/2016 Urinary tract infectious disease Eric Dennis MD Active Family History Date Family Member(s) Problem(s) Comments Father Unknown Mother Unknown Social History Type Date Description Comments Marital Status Patient is Occupation Unemployed Cigarette Use 02/02/2018 current cigarette smoker is using lozenges and chewing the gum hoping to move on to the patches shortly smokes about 10 cigarettes /day at this time ETOH Use 12/18/2016 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 Daily Caffeine Consumes on average 4 cups of coffee per day Allergies, Adverse Reactions, Alerts Date Description Reaction Status Severity Comments 03/20/2016 Codeine unknown active 03/20/2016 Benadryl unknown active Medications Medication Date Status Form Strength Qnty SIG Indications Ordering Provider Duloxetine HCL / Active Caps DR 60mg Unknown 0000 Part Omeprazole / Active Tablets DR 40mg 1 by Unknown 0000 mouth every day Atorvastatin 00/ Active Tablets 40mg Unknown Calcium 0000 Losartan 00/ Active Tablets 100-25mg Unknown Potassium/Hydroc 0000 hlorothiazide Trazodone HCL / Active Tablets 50mg Unknown 0000 Quetiapine / Active Tablets 25mg Unknown Fumarate 0000 Vitamin D / Active Tablets 1000Unit 1 by Unknown 0000 mouth every day Nabumetone / Active Tablets 750mg Unknown 0000 Bactrim DS 07/28/ Hx Tablets 800-160mg 14tabs one Eric Dc 2017 - tablet MD Sonny 02/01/ twice a 2017 day. Ciprofloxacin 06/12/ Hx Tablets 500mg 6tabs 1 by HERIBERTO Myers 2017 - mouth Felton M, 06/15/ twice a M.D. 2016 day Naproxen Sodium / Hx Tablets 550mg 1 by Unknown 0000 - mouth 07/22/ twice a 2017 day with food Gabapentin / Hx Capsules 100mg Unknown 0000 - 2017 Vital Signs Date Vital Result Comment 02/02/2018 Height 64 inches 5'4" Weight 162.00 lb Weight in kg's 73.483 BMI (Body Mass Index) 27.8 kg/m2 07/23/2017 Height 64 inches 5'4" Weight 159.00 lb actual Weight in kg's 72.122 BMI (Body Mass Index) 27.3 kg/m2 BP Systolic 116 mmHg BP Diastolic 64 mmHg Heart Rate 64 /min Respiratory Rate 20 /min 12/18/2016 Height 64 inches 5'4" Weight 160.00 lb Weight in kg's 72.576 BMI (Body Mass Index) 27.5 kg/m2 BP Systolic 112 mmHg BP Diastolic 71 mmHg Heart Rate 78 /min Respiratory Rate 18 /min Body Temperature 97.9 F 04/08/2016 Height 64 inches 5'4" Weight 160.00 lb Weight in kg's 72.576 BMI (Body Mass Index) 27.5 kg/m2 BP Systolic 121 mmHg left wrist audio BP Diastolic 84 mmHg left wrist audio Heart Rate 65 /min Body Temperature 97.5 F Results Test Date Test Result H/L Range Note Laboratory test finding 02/02/2018 Urine Cytology <pending> 230 Ua Routine 02/02/2018 Ua Glucose Negative Ua Protein Trace Ua Nitrite Negative Ua Leuko Negative Ua Blood Trace-intact Ua Color Yellow Ua Ketones Negative Ua Clarity Slightly Cloudy Ua Specific Wilson >=1.030 1.003-1.030 Ua PH 5.5 5.0-7.5 Ua Bilirubin 1+ Ua Urobilinogen 0.2 E.U./dL 0.0-1.0 Urine Microscopy 07/23/2017 Urine WBC 0-2 /HPF 0 - 5 Urine RBC 0-2 /HPF 0-2 Bacteria NEG /HPF Neg Crystals NEG /HPF Neg Epithelial Cells RARE /HPF Neg Sperm NEG /HPF Neg Yeast NEG /HPF Neg UACast NEG /LPF Neg Urine Culture 07/23/2017 Urine Culture KLEBSIELLA PNEUM <SEE NOTE> 1 Quantity 10,000 - 50,000 <SEE NOTE> 2 Ast-GN67 07/23/2017 Nitrofurantoin <=16 Trimethoprim/Sulfamethoxazole <=20 Ampicillin >=32 Cefazolin <=4 Ampicillin/Sulbactam 4 Ciprofloxacin <=0.25 Piperacillin/Tazobactam 8 Ceftazidime <=1 Ceftriaxone <=1 Cefepime <=1 Levofloxacin <=0.12 Imipenem <=0.25 Gentamicin <=1 Tobramycin <=1 Urine Cytology 07/23/2017 Clinical History R31.9 Specimen Adequacy Satisfactory for <SEE NOTE> 3 BodySite Voided - Clean C <SEE NOTE> 4 Gross Description Received in a sp <SEE NOTE> 5 Microscopic Description Rare neutrophils <SEE NOTE> 6 Final Diagnosis NEGATIVE FOR HIG <SEE NOTE> 7 CPTCode 33485 PDF Report SEE IMAGE 230 Ua Routine 07/23/2017 Ua Glucose Negative Ua Protein Negative Ua Nitrite Negative Ua Leuko Negative Ua Blood Trace-lysed Ua Color Yellow Ua Ketones Negative Ua Clarity Clear Ua Specific Wilson 1.010 1.003-1.030 Ua PH 6.5 5.0-7.5 Ua Bilirubin Negative Ua Urobilinogen 0.2 E.U./dL 0.0-1.0 230 Ua Routine 03/25/2017 Ua Glucose Negative Ua Protein Negative Ua Nitrite Negative Ua Leuko Negative Ua Blood 1+ Ua Color yellow Ua Ketones Negative Ua Clarity clear Ua Specific Wilson 1.020 1.003-1.030 Ua PH 5.5 5.0-7.5 Ua Bilirubin Negative Ua Urobilinogen 0.2 E.U./dL 0.0-1.0 230 Ua Routine 02/25/2017 Ua Glucose Negative Ua Protein Negative Ua Nitrite Negative Ua Leuko Trace Ua Blood 3+ Ua Color yellow Ua Ketones Negative Ua Clarity clear Ua Specific Wilson >=1.030 1.003-1.030 Ua PH 5.5 5.0-7.5 Ua Bilirubin Negative Ua Urobilinogen 0.2 E.U./dL 0.0-1.0 CBC W/Diff 01/28/2017 Hemoglobin 13.9 Hematocrit 42.7 CMP 01/28/2017 BUN - Urea Nitrogen 15 Creatinine 1.1 Calcium 10.1 Alkaline Phosphatase 99 Ast (Sgot) 17 Potassium 3.8 Alt (SGPT) 12 230 Ua Routine 12/18/2016 Ua Glucose Negative Ua Protein Negative Ua Nitrite Negative Ua Leuko 1+ Ua Blood 1+ Ua Color yellow Ua Ketones Negative Ua Clarity cloudy Ua Specifici Wilson 1.015 1.003-1.030 Ua PH 7.0 5.0-7.5 Ua Bilirubin Negative Ua Urobilinogen 0.2 E.U./dL 0.0-1.0 Urine Microscopy 12/18/2016 Urine WBC 50-100 /HPF 0 - 5 Urine RBC 6-10 /HPF 0-2 Bacteria 2+ /HPF Neg Crystals NEG /HPF Neg Epithelial Cells 1+ /HPF Neg Sperm NEG /HPF Neg Yeast NEG /HPF Neg UACast NEG /LPF Neg Urine Cytology 12/18/2016 Clinical History N39.0 8 Specimen Adequacy Satisfactory for <SEE NOTE> 9 BodySite Voided - Clean C <SEE NOTE> 10 Gross Description Received in a sp <SEE NOTE> 11 Microscopic Description Moderate numbers <SEE NOTE> 12 Final Diagnosis NEGATIVE FOR HIG <SEE NOTE> 13 CPTCode 47003 PDF Report SEE IMAGE Urine Culture 12/18/2016 Urine Culture URETHRAL RABIA 14 Quantity 10,000 - 50,000 <SEE NOTE> 14, 15 CMP 12/12/2016 BUN - Urea Nitrogen 18 7-18 Creatinine 1.2 0.6-1.3 Calcium 9.2 8.5-10.1 Alkaline Phosphatase 121 High 45-117 Ast (Sgot) 15 15-37 Potassium 3.3 Low 3.5-5.1 Alt (SGPT) 19 12-78 Laboratory test finding 12/12/2016 Egfr 48 Low >60 CBC W/Diff 12/12/2016 Hemoglobin 13.8 11.6-15.8 Hematocrit 40.6 36.0-46.1 Laboratory test finding 12/12/2016 Ua Color Yellow Yellow Ua Clarity Clear Clear Ua Glucose Neg Neg Ua Bilirubin Neg Neg Ua Ketones Neg Neg Ua Specifici Wilson 1.015 1.010-1.030 Ua Blood Large High Neg Ua PH 5.5 Low 6.5-7.5 Ua Protein 30 High Neg Ua Urobilinogen 0.2 0.2-1.0 Ua Nitrite Neg Neg Ua Leuko Small High Neg Ua RBC >50 High 0-2 Ua WBC >50 High 0-7 Ua Epithelial Cells Very Few None Seen Ua Bacteria Very Few None Seen Ua Casts Hyaline 0-2 None Seen Urine Culture Escherichia Coli High 230 Ua Routine 07/07/2016 Ua Glucose Negative Ua Protein Negative Ua Nitrite Negative Ua Leuko Negative Ua Blood 2+ Ua Color yellow Ua Ketones Negative Ua Clarity clear Ua Specifici Wilson <=1.005 1.003-1.030 Ua PH 5.5 5.0-7.5 Ua Bilirubin Negative Ua Urobilinogen 0.2 E.U./dL 0.0-1.0 Urine Cytology 07/07/2016 Clinical History R31.0 Specimen Adequacy Satisfactory for <SEE NOTE> 16 BodySite Voided - Clean C <SEE NOTE> 17 Gross Description Received in a sp <SEE NOTE> 18 Microscopic Description None. Final Diagnosis NEGATIVE FOR HIG <SEE NOTE> 19 CPTCode 63504 PDF Report SEE IMAGE 230 Ua Routine 06/12/2016 Ua Glucose Negative Ua Protein Negative Ua Nitrite Negative Ua Leuko Negative Ua Blood Trace-intact Ua Color yellow Ua Ketones Negative Ua Clarity clear Ua Specifici Wilson >=1.030 1.003-1.030 Ua PH 6.5 5.0-7.5 Ua Bilirubin Negative Ua Urobilinogen 1.0 E.U./dL 0.0-1.0 Urine Cytology 04/08/2016 Clinical History R31.1 Specimen Adequacy Satisfactory for <SEE NOTE> 20 BodySite Voided - Clean C <SEE NOTE> 21 Gross Description Received in a sp <SEE NOTE> 22 Microscopic Description Mild numbers of <SEE NOTE> 23 Final Diagnosis NEGATIVE FOR HIG <SEE NOTE> 24 CPTCode 91787 PDF Report SEE IMAGE 230 Ua Routine 04/08/2016 Ua Glucose Negative Ua Protein Negative Ua Nitrite Negative Ua Leuko Trace Ua Blood Trace-intact Ua Color yellow Ua Ketones Negative Ua Clarity clear Ua Specifici Wilson 1.015 1.003-1.030 Ua PH 7.0 5.0-7.5 Ua Bilirubin Negative Ua Urobilinogen 0.2 E.U./dL 0.0-1.0 Urine Microscopy 04/08/2016 Urine WBC 10-25 /HPF 0 - 5 Urine RBC 10-25 /HPF 0-2 Bacteria RARE /HPF Neg Crystals neg /HPF Neg Epithelial Cells 2+ /HPF Neg Sperm NEG /HPF Neg Yeast NEG /HPF Neg CBC W/Diff 03/17/2016 Hemoglobin 13.2 12.0-16.0 Hematocrit 38.7 36.0-47.0 BUN And Creatinine 03/17/2016 BUN - Urea Nitrogen 14 6-26 Creatinine 1.0 0.5-1.4 Laboratory test finding 03/17/2016 Egfr 54 Low >60 1 KLEBSIELLA PNEUMONIAE 2 10,000 - 50,000 CFU/mL 3 Satisfactory for evaluation. 4 Voided - Clean Catch 5 Received in a specimen container, labeled with the patients name and , is Clear Colorless fluid consistent with urine, measuring approximately 40 ml. 6 Rare neutrophils present. 7 NEGATIVE FOR HIGH-GRADE UROTHELIAL CARCINOMA. 8 R31.9 9 Satisfactory for evaluation. 10 Voided - Clean Catch 11 Received in a specimen container, labeled with the patients name and , is Cloudy Yellow fluid consistent with urine, measuring approximately 30 ml. 12 Moderate numbers of neutrophils present. 13 NEGATIVE FOR HIGH-GRADE UROTHELIAL CARCINOMA. 14 N39.0 R31.9 15 10,000 - 50,000 CFU/mL 16 Satisfactory for evaluation. 17 Voided - Clean Catch 18 Received in a specimen container, labeled with the patients name and , is Clear Yellow fluid consistent with urine, measuring approximately 5 ml. 19 NEGATIVE FOR HIGH-GRADE UROTHELIAL CARCINOMA. 20 Satisfactory for evaluation. 21 Voided - Clean Catch 22 Received in a specimen container, labeled with the patients name and , is Clear Colorless fluid consistent with urine, measuring approximately 30 ml. 23 Mild numbers of neutrophils present. 24 NEGATIVE FOR HIGH-GRADE UROTHELIAL CARCINOMA. Procedures Date CPT Code Description Status 07/23/2017 Colonoscopy Completed 02/13/2017 41043 Retrograde,Pyelogram,Urography- Hosp Completed 02/13/2017 52054 Cystourethroscopy, With Biopsy Completed 07/07/2016 00077 Ultrasound Retro Renal Real Time With Image Limited Completed Global 06/12/2016 24151 Cystourethroscopy, Separate Procedure Completed 06/08/2016 Mammogram Completed Encounters Type Date Location Provider CPT E/M Dx Office Visit 02/02/2018 9:15a [facility] [address] R31.9 Urology Bhavna Nino N39.46 N39.3 Office Visit 07/23/2017 2:20p [facility] [address] R31.9 Office Visit 03/25/2017 2:15p [facility] [address] R31.9 Office Visit 02/25/2017 9:20a [facility] [address] R31.9 N39.0 Office Visit 12/18/2016 3:35p [facility] [address] N39.0 R31.9 Office Visit 07/07/2016 12:50p [facility] Jose Francisco Myers, [address] N13.4 M.D. R31.0 Office Visit 04/08/2016 2:10p [facility] Myers, [address] R31.1 M.DMarlen M54.5 N13.4 R31.0 N39.3 N39.41 Plan of Care Future Appointment(s):08/03/2018 9:30 am - Bhavna Mata at [facility] Cschqfn6002/02/2018 - Bhavna MataR31.9 Hematuria, unspecifiedComments:Call for his reviewed. Urine sent for cytology once microscopy.N39.46 Mixed [id number] Stress incontinence (female) (male) Comments:Reviewed Som exercises and recommend that she does them as an exercise once a day sets of 10 whilerelaxing
--- OUTSIDE RECORDS SUMMARY | 2018-02-12 18:47 | XMS REPORT ---
:1950 External Reference #:[id number] Author Organization [facility] Address [address] [place] [phone] Phone [phone] Care Team Providers Name Role Phone Jazmine Cabrera PA-C Care Team Information Crm Architect Unavailable Jazmine Cabrera PA-C Primary Care Physician Unavailable Payers Type Date Identification Numbers Payment Provider Subscriber Medicare Primary Effective: Policy Number: Medicare Sanna Flores 2014 [id number] PayID: [id number] [address] [place] [address] Medigap Part B Effective: Policy Number: [facility] Supplemental Sanna De Jesuss 2014 [id number] Plan PayID: [id number] [address] [place] [address] Problems Date Description Provider Status Onset: 12/18/2016 [...] Negative Ua Clarity Slightly Cloudy Ua Specific Wilmar >=1.030 1.003-1.030 Ua PH 5.5 5.0-7.5 Ua [...] NEGATIVE FOR HIG <SEE NOTE> 7 CPTCode 94972 PDF Report SEE IMAGE 230 Ua Routine 07/23/2017 Ua Glucose Negative Ua Protein Negative Ua Nitrite Negative Ua Leuko Negative Ua Blood Trace-lysed Ua Color Yellow Ua Ketones Negative Ua Clarity Clear Ua Specific Wilmar 1.010 1.003-1.030 Ua PH 6.5 5.0-7.5 Ua Bilirubin Negative Ua Urobilinogen 0.2 E.U./dL 0.0-1.0 230 Ua Routine 03/25/2017 Ua Glucose Negative Ua Protein Negative Ua Nitrite Negative Ua Leuko Negative Ua Blood 1+ Ua Color yellow Ua Ketones Negative Ua Clarity clear Ua Specific Wilmar 1.020 1.003-1.030 Ua PH 5.5 5.0-7.5 Ua Bilirubin Negative Ua Urobilinogen 0.2 E.U./dL 0.0-1.0 230 Ua Routine 02/25/2017 Ua Glucose Negative Ua Protein Negative Ua Nitrite Negative Ua Leuko Trace Ua Blood 3+ Ua Color yellow Ua Ketones Negative Ua Clarity clear Ua Specific Wilmar >=1.030 1.003-1.030 Ua PH 5.5 5.0-7.5 Ua [...] Ketones Negative Ua Clarity cloudy Ua Specifici Wilmar 1.015 1.003-1.030 Ua PH 7.0 5.0-7.5 Ua [...] NEGATIVE FOR HIG <SEE NOTE> 13 CPTCode 35867 PDF Report SEE IMAGE Urine Culture 12/18/2016 [...] Neg Ua Ketones Neg Neg Ua Specifici Wilmar 1.015 1.010-1.030 Ua Blood Large High Neg [...] Ketones Negative Ua Clarity clear Ua Specifici Wilmar <=1.005 1.003-1.030 Ua PH 5.5 5.0-7.5 Ua Bilirubin Negative Ua Urobilinogen 0.2 E.U./dL 0.0-1.0 Urine Cytology 07/07/2016 Clinical History R31.0 Specimen Adequacy Satisfactory for <SEE NOTE> 16 BodySite Voided - Clean C <SEE NOTE> 17 Gross Description Received in a sp <SEE NOTE> 18 Microscopic Description None. Final Diagnosis NEGATIVE FOR HIG <SEE NOTE> 19 CPTCode 57457 PDF Report SEE IMAGE 230 Ua Routine 06/12/2016 Ua Glucose Negative Ua Protein Negative Ua Nitrite Negative Ua Leuko Negative Ua Blood Trace-intact Ua Color yellow Ua Ketones Negative Ua Clarity clear Ua Specifici Wilmar >=1.030 1.003-1.030 Ua PH 6.5 5.0-7.5 Ua Bilirubin Negative Ua Urobilinogen 1.0 E.U./dL 0.0-1.0 Urine Cytology 04/08/2016 Clinical History R31.1 Specimen Adequacy Satisfactory for <SEE NOTE> 20 BodySite Voided - Clean C <SEE NOTE> 21 Gross Description Received in a sp <SEE NOTE> 22 Microscopic Description Mild numbers of <SEE NOTE> 23 Final Diagnosis NEGATIVE FOR HIG <SEE NOTE> 24 CPTCode 82190 PDF Report SEE IMAGE 230 Ua Routine 04/08/2016 Ua Glucose Negative Ua Protein Negative Ua Nitrite Negative Ua Leuko Trace Ua Blood Trace-intact Ua Color yellow Ua Ketones Negative Ua Clarity clear Ua Specifici Wilmar 1.015 1.003-1.030 Ua PH 7.0 5.0-7.5 Ua [...] Code Description Status 07/23/2017 Colonoscopy Completed 02/13/2017 68854 Retrograde,Pyelogram,Urography- Hosp Completed 02/13/2017 20889 Cystourethroscopy, With Biopsy Completed 07/07/2016 58243 Ultrasound Retro Renal Real Time With Image Limited Completed Global 06/12/2016 52176 Cystourethroscopy, Separate Procedure Completed 06/08/2016 Mammogram Completed Encounters Type Date Location Provider CPT E/M Dx Office Visit 02/02/2018 9:15a [facility] [address] R31.9 Urology Bhavna Nino N39.46 N39.3 Office Visit 07/23/2017 2:20p [facility] [address] R31.9 Office Visit 03/25/2017 2:15p [facility] [address] R31.9 Office Visit 02/25/2017 9:20a [facility] [address] R31.9 N39.0 Office Visit 12/18/2016 3:35p [facility] [address] N39.0 R31.9 Office Visit 07/07/2016 12:50p [facility] Jose Francisco Myers, [address] N13.4 M.D. R31.0 Office Visit 04/08/2016 2:10p [facility] Jose Francisco Myers, [address] R31.1 M.DMarlen M54.5 N13.4 R31.0 N39.3 N39.41 Plan of Care Future Appointment(s):08/03/2018 9:30 am - Bhavna Mata at [facility] Reskkdj0502/02/2018 - Bhavna MataR31.9 Hematuria, unspecifiedComments:Call for his reviewed. Urine sent for cytology once microscopy.N39.46 Mixed [id number] Stress incontinence (female) (male) Comments:Reviewed Som exercises and recommend that she does them as an exercise once a day sets of 10 whilerelaxing
[2018-02-12 20:06] VITALS: BP 126/64
--- NOTE | 2018-02-12 20:31 | UC ---
Neck Pain HPI - HPI Summary HPI Summary: Patient is complaining of pain to the sides of her neck for the past 2 days. She first noticed it upon waking. She denies any associated headache, fever, injury as well as numbness or tingling to her arms or legs. She has self treated with topical creams as well as a single dose of Motrin once this morning plus a single dose of Tylenol once today and then prior to today she used Aleve twice. She states that she doesn't like taking extra medications thus she has not tried any of those routinely. She does admit that those medications did give her temporary partial relief. - History of Current Complaint Chief Complaint: UCGeneralIllness Stated Complaint: NECK STIFFNESS/PAIN Time Seen by Provider: 02/12/18 20:23 Hx Obtained From: Patient Hx Last Menstrual Period: N/A Pain Intensity: 10 Aggravating Factors: Movement Associated Signs & Symptoms: Negative: Fever, Weakness, Headache, Paresthesia - Allergies/Home Medications Allergies/Adverse Reactions: Allergies Allergy/AdvReac Type Severity Reaction Status Date / Time codeine Allergy "passed Verified 02/12/18 20:06 out" diphenhydramine Allergy Swelling Verified 02/12/18 20:06 [From Benadryl] Home Medications: Home Medications Albuterol HFA INHALER* [Ventolin HFA Inhaler*] 2 puff INH Q4H PRN 02/12/18 [ History Confirmed 02/12/18] PMH/Surg Hx/FS Hx/Imm Hx - Additional Past Medical History Additional PMH: sleep disturbance, 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 APPENDECTOMY. CARPAL TUNNEL RELEASE. TUBAL LIGATION. PER DR. BRADLEY'S NOTE. GALL BLADDER REMOVAL - Family History Known Family History: Positive: None - Social History Occupation: Employed Part-time Lives: With Family Alcohol Use: None Alcohol Amount: Sober 9 years Substance Use Type: None Smoking Status (MU): Light Every Day Tobacco Smoker Type: Cigarettes Amount Used/How Often: 1/2 PPD Length of Time of Smoking/Using Tobacco: 52 Years Have You Smoked in the Last Year: Yes When Did the Patient Quit Smoking/Using Tobacco: 12/03/16 - Immunization History Most Recent Influenza Vaccination: 04/21/17 Most Recent Tetanus Shot: UTD Most Recent Pneumonia Vaccination: APR 2015 Vaccination Up to Date: Yes Review Of Systems Constitutional: Positive: Negative Skin: Positive: Negative Eyes: Positive: Negative ENT: Positive: Negative Respiratory: Positive: Negative Cardiovascular: Positive: Negative Gastrointestinal: Positive: Negative Genitourinary: Positive: Negative Musculoskeletal: Positive: Other: - pain to sides of neck Neurological: Positive: Negative Psychological: Positive: Negative All Other Systems Reviewed And Are Negative: Yes Physical Exam Triage Information Reviewed: Yes Appearance: Well-Appearing Vital Signs: Initial Vital Signs Temp 97.3 F 02/12/18 19:59 Pulse 63 02/12/18 19:59 Resp 17 02/12/18 19:59 BP 126/64 02/12/18 19:59 Pulse Ox 98 02/12/18 19:59 Vital Signs Reviewed: Yes Eyes: Positive: Conjunctiva Clear ENT: Positive: Pharynx normal, TMs normal. Negative: Nasal congestion, Nasal drainage Neck: Positive: No Lymphadenopathy, Other: - Inspection of the neck and C-spine reveals no gross deformity swelling or discoloration. The cervical spine is nontender to palpation. Patient notes diffuse tenderness with palpation to the paraspinal muscles on the back of her neck and trapezius muscle. There is no sternocleidomastoid tenderness. There is no nuchal rigidity. Respiratory: Positive: Lungs clear, Normal breath sounds Cardiovascular: Positive: RRR, No Murmur Abdomen Description: Positive: Nontender, No Organomegaly, Soft Bowel Sounds: Positive: Present Musculoskeletal: Positive: Other: - She has 5 out of 5 strength, 2+ reflexes and superficial sensation is intact all times for. Neurological: Positive: Other: - Patient is alert and oriented presents with some time. Cranial nerves II through XII are grossly intact. Psychological: Positive: Age Appropriate Behavior Skin Exam: Normal Skin: Negative: rashes Re-Evaluation - Re-Evaluation First Eval Re-Evaluation Time: 21:10 Change: Improved - notes neck is less tight after tx. improved rom. Neck Pain Course/Dx - Course Course Of Treatment: There is no history of injury or cervical spine tenderness thus no concern for fracture. There is no associated headache this no concern for intracranial pathology. There is no fever or nuchal rigidity to suggest an infectious process. Pt was able to drive herself here. Her exam is consistent with muscle spasm. Going to treat her with a combination of anti-inflammatory and muscle relaxer. Need for close follow-up with primary care provider stressed at time of visit. - Differential Dx/Diagnosis Provider Diagnoses: Muscle spasms posterior neck. Discharge - Sign-Out/Discharge Documenting (check all that apply): Patient Departure All imaging exams completed and their final reports reviewed: No Studies - Discharge Plan Condition: Stable Disposition: HOME Prescriptions: Cyclobenzaprine TAB* [Flexeril 10 MG TAB*] 10 mg PO TID PRN #10 tab PRN Reason: Spasms - Neck Naproxen [Naprosyn 500 mg tab] 500 mg PO BID 5 Days #10 tablet Patient Education Materials: Muscle Spasm (ED) Referrals: Jazmine Cabrera PA [Primary Care Provider] - 3 Days - Billing Disposition and Condition Condition: STABLE Disposition: Home
[2018-02-12] MEDS ORDERED: Ketorolac INJ* 30 MG/ML 1 ML VIAL IM ONE (20:35)
[2018-02-12] MEDS ORDERED: Cyclobenzaprine TAB* 10 MG PO ONE (20:39)
== END 2018-02-12 21:19 | disposition home or self-care (01) ==
LOC: UCCORT 18:29
DX: M62.838 Other muscle spasm (principal); F17.210 Nicotine dependence, cigarettes, uncomplicated; Z88.8 Allergy status to other drugs, medicaments and biological substances; Z88.5 Allergy status to narcotic agent
CPT/HCPCS: 96372; 99212; A9270-GY; G0463; J1885

== ENCOUNTER 2018-07-27 14:02 | Emergency (ER) | payer MEDICARE ==
--- OUTSIDE RECORDS SUMMARY | 2018-07-27 14:16 | XMS REPORT | Continuity of Care Document ---
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 [place] [address] Effective: 2014 Policy Number: [id number] [facility] Healthcare Options Sanna Flores PayID: [id number] [address] [place] [address] Advance Directives Description No Information Available Problems Date Description Provider Status Onset: 03/17/2013 [...] Esophagitis Active Family History Date Family Member(s) Observation Comments Maternal Grandmother [place] Social History Type Date Description Comments Sex Unknown Marital Status Occupation Retired Tobacco Use Start: Unknown End: Patient is a former smoker QUIT 11/26/16 Unknown Tobacco Use Reviewed: 12/06/16 Patient is a current STARTED SMOKING AGAIN smoker, smokes every day -10 CIGS PER DAY Smoking Status Reviewed: 12/06/16 Patient is a current STARTED SMOKING AGAIN smoker, smokes every day -10 CIGS PER DAY Allergies, Adverse Reactions, Alerts Date Description Reaction Status Severity Comments 08/07/2014 Codeine Active Passed Out 08/07/2014 Benadryl Active Swelling. 06/02/2010 Diphenhydramine HCL Active Medications Medication Date Status Form Strength Qnty SIG Indications Ordering Provider [facility] Nicotine 07/12/ Active Patches 24HR 14mg/24HR 42uni Apply one F17.218 [facility] Transdermal 2018 ts patch Mike, System Step 2 daily DO Prednisone 07/12/ Active Tablets 20mg 10tab 2 tablets J06.9 Son[facility], 2018 s by mouth Mike, for 5 days DO Guaifenesin ER 06/22/ Active Tablets ER 1200mg 30tab 1 by mouth Sonu2018 12HR s twice Mike, daily DO Buspirone HCL 03/15/ Active Tablets 5mg 180ta take 1 F41.1 Sonu2017 bs tablet by Mike, mouth DO twice daily Ventolin HFA 08/03/ Active Aerosol 108(90Base 8gm 2 puffs Sonu, 2018 ) mcg/Act every 4-6 Mike, hours as DO needed for cough, wheezing, shortness of breath Bupropion HCL 08/03/ Active Tablets ER 150mg 180ta 1 tablet Sonu, ER (Smoking 2017 12HR bs twice Mike, Det) daily DO Fluticasone 05/11/ Active Suspension 50mcg/Act 15.80 two sprays H92.01 Ascencio, Propionate 2016 0ml in each Mike, nostril DO once daily Combivent 01/24/ Active Aerosol 20-100mcg/ 1unit 1 puff by J44.9 Ammon , Respimat 2014 Act s mouth four Daniel, times a DO day Trazodone HCL 11/07/ Active Tablets 50mg 90tab Take 1 G47.00 Sonu, 2014 s Tablet AT [facility], Bedtime DO Omeprazole 08/07/ Active Capsules DR 40mg 180ca Take 2 K21.0 Sonu 2014 ps Capsules Mike, Every Day DO Losartan 06/13/ Active Tablets 100-25mg 90tab take one I10 [facility], Potassium/Hydr 2014 s tablet by Mike ochlorothiazid mouth DO e every day Atorvastatin 06/13/ Active Tablets 40mg 90tab Take 1 E78.2 Ascencio, Calcium 2014 s Tablet Mike, Every Day DO Quetiapine / Active Tablets 25mg 90tab take one F33.1 Ascencio, Fumarate s tablet by Mike, mouth at DO bedtime F41.1 Tizanidine HCL Active Tablets 2mg 30tabs 1 by mouth Sonu, three times Mike, DO a day as needed Nabumetone Active Tablets 750mg 1 by mouth Sos [place] daily with [facility] Duloxetine HCL Active Caps DR 60mg 180caps Take 1 F41 Sonu Part Capsule .1 Mike, DO Twice Daily F33.1 Prednisone Hx Tablets 20mg 10tabs 2 tablets by R05 Sonu 019 - mouth for 5 Mike, days DO 019 Benzonatate Hx Capsules 200mg 30caps 1 capsule up Sonu 019 - to 3 times a Mike, day as needed DO 019 for cough Nitrofurantoin Monohyd 09/04/2 Hx Capsules 100mg 14caps 1 by mouth R30.0 Digiovan Macro 018 - twice a day na, for 7 days Ibeth 018 , [employer] PUBL[employer] Phenazopyridine HCL Hx Tablets 200mg 6tabs 1 by mouth R30.0 Digiovan 018 - 3x/day with na, food for 2 Ibeth 018 days , [employer] PUBL[employer]ER Spiriva Respimat Hx Aerosol 2.5mcg 4gm 2 puffs in Ascencio, 018 - /Act the morning Mike, DO 018 Bupropion HCL ER (SR) Hx Tablets ER 150mg 60tabs Take One Z87.89 Ammon, 017 - 12HR Tablet By 1 Daniel Mouth Twice , DO 018 Daily F41.1 Bactrim DS 02/26/2016 - Hx Tablets 800-160mg 20tabs 1 by mouth N20.0 Ammon, 03/18/2016 twice a Daniel, day DO Prednisone 11/20/2015 - Hx Tablets 10mg 30tabs 4 by mouth M54.31 Digiovanna, 12/02/2015 every d x Ibeth, 3 days [employer] then 3 by mouth every d x [...] by mouth M51.06 Ammon, 03/30/2017 at bedtime Daniel, DO Prednisone 08/28/2015 - Hx Tablets 10mg QS [...] Code Status Date Vaccine Reaction Lot # [id number] Given 04/01/2018 Pneumococcal 23 Immunization Adult Or Immunosuppressed Patient 30092 Given 04/01/2018 Fluzone Highdose Age 65 And Over Preservative & Antibiotic Free 01871 Given 07/29/2016 Pneumococcal 23 Immunization Im inj completed, Pt [id number] Adult Or Immunosuppressed tolerated well Patient 48512 Given 03/18/2016 Fluzone Highdose Age 65 And [place] Over Preservative & Antibiotic Free 39840 Given 03/21/2015 Prevnar 13 Pneumococal Given At Pharmacy Conjugate Vaccine [place] 71561 Given 03/21/2015 Fluzone Highdose Age 65 And Given At Pharmacy Over Preservative & [place] Antibiotic Free Vital Signs Date Vital Result Comment 07/12/2018 11:26am Body Temperature 98.1 F Weight 160.00 lb Heart Rate 70 /min BP Systolic 104 mmHg BP Diastolic 74 mmHg Respiratory Rate 18 /min O2 % BldC Oximetry 96 % 06/28/2018 4:17pm Weight 160.00 lb Heart Rate 86 /min BP Systolic 120 mmHg BP Diastolic 70 mmHg Respiratory Rate 17 /min Height 64 inches 5'4" BMI (Body Mass Index) 27.5 kg/m2 06/21/2018 1:00pm Body Temperature 98.1 F Weight 160.00 lb Heart Rate 88 /min BP Systolic 148 mmHg BP Diastolic 88 mmHg Respiratory Rate 18 /min Height 64 inches 5'4" O2 % BldC Oximetry 99 % BMI (Body Mass Index) 27.5 kg/m2 03/15/2018 1:16pm Weight 163.00 lb Heart Rate 84 /min BP Systolic 132 mmHg BP Diastolic 80 mmHg Respiratory Rate 18 /min Height 64 inches 5'4" BMI (Body Mass Index) 28.0 kg/m2 02/23/2018 10:37am Weight 163.00 lb Heart Rate 82 /min BP Systolic 132 mmHg BP Diastolic 78 mmHg Respiratory Rate 18 /min Height 64 inches 5'4" BMI (Body Mass Index) 28.0 kg/m2 02/09/2018 2:09pm Body Temperature 97.7 F tympanic Weight 165.44 lb Heart Rate 78 /min BP Systolic 124 mmHg BP Diastolic 70 mmHg Respiratory Rate 18 /min Height 64 inches 5'4" BMI (Body Mass Index) 28.4 kg/m2 11/11/2017 3:40pm Weight 162.00 lb BP Systolic 120 mmHg BP Diastolic 70 mmHg Height 64 inches 5'4" BMI (Body Mass Index) 27.8 kg/m2 08/03/2017 11:10am Weight 161.00 lb Heart Rate 76 /min BP Systolic 148 mmHg BP Diastolic 84 mmHg BP Systolic Recheck 134 mmHg BP Diastolic Recheck 86 mmHg Respiratory Rate 18 /min Height 64 inches 5'4" BMI (Body Mass Index) 27.6 kg/m2 05/11/2017 3:44pm Body Temperature 98.6 F Weight 169.00 lb Heart Rate 74 /min BP Systolic 140 mmHg BP Diastolic 80 mmHg Respiratory Rate 18 /min 03/30/2017 9:51am Weight 169.50 lb Heart Rate 78 /min 72 Reg BP Systolic 118 mmHg BP Diastolic 76 mmHg BP Systolic Recheck 124 mmHg BP Diastolic Recheck 78 mmHg Respiratory Rate 18 /min Height 64.5 inches 5'4.50" BMI (Body Mass Index) 28.6 kg/m2 01/28/2017 10:51am Body Temperature 96.8 F Weight 168.00 lb Heart Rate 74 /min BP Systolic 112 mmHg BP Diastolic 58 mmHg Respiratory Rate 16 /min Height 64.5 inches 5'4.50" BMI (Body Mass Index) 28.4 kg/m2 11/27/2016 9:56am Weight 164.00 lb Heart Rate 76 /min 72 Reg BP Systolic 114 mmHg BP Diastolic 78 mmHg BP Systolic Recheck 118 mmHg BP Diastolic Recheck 78 mmHg Respiratory Rate 18 /min Height 64.5 inches 5'4.50" BMI (Body Mass Index) 27.7 kg/m2 11/24/2016 1:34pm Weight 166.12 lb Heart Rate 76 /min BP Systolic 126 mmHg BP Diastolic 78 mmHg Respiratory Rate 18 /min Height 64.5 inches 5'4.50" BMI (Body Mass Index) 28.1 kg/m2 09/04/2016 2:02pm Weight 164.00 lb Heart Rate 66 /min BP Systolic 118 mmHg BP Diastolic 82 mmHg Respiratory Rate 18 /min Height 64.5 inches 5'4.50" BMI (Body Mass Index) 27.7 kg/m2 07/29/2016 11:29am Weight 164.00 lb Heart Rate 66 /min 68 Reg BP Systolic 110 mmHg BP Diastolic 70 mmHg BP Systolic Recheck 110 mmHg BP Diastolic Recheck 72 mmHg Respiratory Rate 18 /min Height 63.75 inches 5'3.75" BMI (Body Mass Index) 28.4 kg/m2 03/18/2016 1:48pm Weight 156.00 lb Heart Rate 78 /min 72 Reg BP Systolic 130 mmHg BP Diastolic 82 mmHg BP Systolic Recheck 120 mmHg BP Diastolic Recheck 74 mmHg Respiratory Rate 18 /min Height 63.75 inches 5'3.75" BMI (Body Mass Index) 27.0 kg/m2 02/26/2016 2:21pm Weight 159.00 lb Heart Rate 78 /min BP Systolic 110 mmHg BP Diastolic 70 mmHg Respiratory Rate 18 /min Height 63.75 inches 5'3.75" BMI (Body Mass Index) 27.5 kg/m2 12/18/2015 1:42pm Weight 161.00 lb Heart Rate 78 /min BP Systolic 114 mmHg BP Diastolic 70 mmHg Respiratory Rate 18 /min Height 63.75 inches 5'3.75" BMI (Body Mass Index) 27.8 kg/m2 11/20/2015 11:08am Weight 160.00 lb Heart Rate 72 /min BP Systolic 120 mmHg BP Diastolic 70 mmHg Respiratory Rate 18 /min Height 63.75 inches 5'3.75" BMI (Body Mass Index) 27.7 kg/m2 08/28/2015 4:15pm Weight 156.00 lb Heart Rate 78 /min BP Systolic 120 mmHg BP Diastolic 72 mmHg Respiratory Rate 18 /min Height 63.75 inches 5'3.75" BMI (Body Mass Index) 27.0 kg/m2 06/07/2015 8:10am Weight 161.50 lb Heart Rate 78 /min BP Systolic 110 mmHg BP Diastolic 74 mmHg Respiratory Rate 18 /min Height 64.25 inches 5'4.25" 01/2015 BMI (Body Mass Index) 27.5 kg/m2 05/10/2015 1:49pm Weight 158.50 lb Heart Rate 78 /min 72 Reg BP Systolic 108 mmHg BP Diastolic 76 mmHg BP Systolic Recheck 120 mmHg BP Diastolic Recheck 78 mmHg Respiratory Rate 24 /min Height 64.25 inches 5'4.25" 01/2015 BMI (Body Mass Index) 27.0 kg/m2 01/24/2015 9:30am Weight 152.00 lb Heart Rate 62 /min BP Systolic 65721 mmHg Respiratory Rate 18 /min Height 64.25 inches 5'4.25" O2 % BldC Oximetry 97 % Ra BMI (Body Mass Index) 25.9 kg/m2 12/28/2014 1:07pm Weight 152.00 lb Heart Rate 72 /min 72 reg BP Systolic 126 mmHg BP Diastolic 74 mmHg BP Systolic Recheck 130 mmHg BP Diastolic Recheck 80 mmHg Respiratory Rate 18 /min Height 64.25 inches 5'4.25" BMI (Body Mass Index) 25.9 kg/m2 12/20/2014 1:03pm Weight 153.00 lb Heart Rate 72 /min BP Systolic 132 mmHg BP Diastolic 76 mmHg Respiratory Rate 18 /min Height 64.25 inches 5'4.25" BMI (Body Mass Index) 26.1 kg/m2 09/21/2014 11:01am Weight 150.00 lb Heart Rate 78 /min BP Systolic 112 mmHg BP Diastolic 78 mmHg Height 64.25 inches BMI (Body Mass Index) 25.5 kg/m2 08/22/2014 1:06pm Weight 151.00 lb Heart Rate 78 /min 78 reg BP Systolic 120 mmHg BP Diastolic 78 mmHg BP Systolic Recheck 120 mmHg BP Diastolic Recheck 80 mmHg Respiratory Rate 18 /min 08/07/2014 2:27pm Weight 151.00 lb Heart Rate 66 /min BP Systolic 140 mmHg BP Diastolic 72 mmHg Respiratory Rate 18 /min Results Test Date Facility Test Result H/L Range Note Lipid Treatment 03/05/2018 [facility] Cholesterol 209 mg/dL High 50-199 Triglycerides 160 mg/dL 30-200 HDL 48 mg/dL 35-85 1 Chol/ HDL Ratio 4.3 ratio 3.7-5.6 VLDL 32 mg/dL High 2-29 LDL (Calc) 129 mg/dL High 20-99 2 Alt 11 U/L 3-42 Ast 14 U/L 8-42 Basic (BMP) 03/05/2018 [facility] Sodium 143 mmol/L 135-146 3 Potassium 3.7 mmol/L 3.5-5.2 Chloride# 102 mmol/L 97-110 4 Carbon Dioxide 30 mmol/L 24-34 Glucose 111 mg/dL High 70-105 BUN 20 mg/dL 6-26 Creatinine 1.2 mg/dL 0.5-1.4 Calcium 9.5 mg/dL 8.5-10.2 Non Susie Egfr 47 Low >60 5 Susie Egfr 57 Low >60 6 Anion Gap 11 mmol/L 5-15 7 CBC with Auto Diff-fcmg 03/05/2018 [facility] WBC 6.4 K/uL 4.1-11.0 RBC 4.84 M/uL 4.00-5.40 Hemoglobin 13.8 gm/dL 12.0-16.0 Hematocrit 41.0 % 36.0-47.0 MCV 84.6 fL 80.0-97.0 MCH 28.5 pg 27.0-32.0 MCHC 33.7 g/dL 32.0-36.0 RDW 14.9 % High 11.5-14.5 PLT Count 226 K/ul 140-400 MPV 9.1 FL 7.1-10.7 Neutrophil 46.9 % 35.0-75.0 Lymphocyte 38.6 % 16.0-52.0 Monocyte 11.5 % High 2.0-10.0 Eosinophil 2.4 % 0.0-5.0 Basophil 0.6 % 0.0-4.0 Abs Neutrophils 3.0 K/uL 2.1-8.0 Abs Lymphocytes 2.5 K/uL 0.8-5.5 Abs Monocytes 0.7 K/uL 0.1-1.0 Abs Eosinophils 0.1 K/uL 0.0-0.5 Abs Basophils 0.0 K/uL 0.0-0.3 Laboratory test 03/05/2018 [facility] TSH 2.61 uIU/mL 0.35-4.94 finding Laboratory test 02/23/2018 [facility] Urine Culture Microbiology res 8 finding <SEE NOTE> Laboratory test 02/09/2018 [facility] Urine Culture Microbiology res 9 finding <SEE NOTE> CBC With Auto Diff 07/24/2017 [facility] WBC 6.9 K/uL 4.1-11.0 10 RBC 5.02 M/uL 4.00-5.40 Hemoglobin 14.1 gm/dL 12.0-16.0 Hematocrit 42.2 % 36.0-47.0 MCV 84.1 fL 80.0-97.0 MCH 28.2 pg 27.0-32.0 MCHC 33.5 g/dL 32.0-36.0 RDW 14.4 % 11.5-14.5 PLT Count 274 K/ul 140-400 MPV 9.0 FL 7.1-10.7 Neutrophil 46.3 % 35.0-75.0 Lymphocyte 37.8 % 16.0-52.0 Monocyte 12.6 % High 2.0-10.0 Eosinophil 2.8 % 0.0-5.0 Basophil 0.5 % 0.0-4.0 Abs Neutrophils 3.2 K/uL 2.1-8.0 Abs Lymphocytes 2.6 K/uL 0.8-5.5 Abs Monocytes 0.9 K/uL 0.1-1.0 Abs Eosinophils 0.2 K/uL 0.0-0.5 Abs Basophils 0.0 K/uL 0.0-0.3 Basic (BMP) 07/24/2017 [facility] Sodium 144 mmol/L 135-146 11 Potassium 3.8 mmol/L 3.5-5.2 Chloride# 103 mmol/L 97-110 12 Carbon Dioxide 33 mmol/L 24-34 Glucose 109 mg/dL High 70-105 BUN 14 mg/dL 6-26 Creatinine 1.2 mg/dL 0.5-1.4 Calcium 9.4 mg/dL 8.5-10.2 Non Susie Egfr 46 Low >60 13 Susie Egfr 56 Low >60 14 Anion Gap 8 mmol/L 5-15 15 Lipid Treatment 07/24/2017 [facility] Cholesterol 178 mg/dL 50-199 Triglycerides 201 mg/dL High 30-200 HDL 46 mg/dL 35-85 16 Chol/ HDL Ratio 3.9 ratio 3.7-5.6 VLDL 40 mg/dL High 2-29 LDL (Calc) 92 mg/dL 20-99 17 Alt 16 U/L 3-42 Ast 16 U/L 8-42 Laboratory 07/24/2017 [facility] Vitamin D 34 ng/mL 30-100 18 test finding 25 Hydroxy Urine Culture 07/23/2017 [facility] Urine KLEBSIELLA Abnormal 19, (315)- - Culture PNEUM <SEE 20 NOTE> Quantity 10,000 - 50,000 <SEE NOTE> 21 Ast-GN67 07/23/2017 [facility] Nitrofurantoin <=16 S (315)- - Trimethoprim/Sulfamethoxazole <=20 S Ampicillin >=32 R Cefazolin <=4 S Ampicillin/Sulbactam 4 S Ciprofloxacin <=0.25 S Piperacillin/Tazobactam 8 S Ceftazidime <=1 S Ceftriaxone <=1 S Cefepime <=1 S Levofloxacin <=0.12 S Imipenem <=0.25 S Gentamicin <=1 S Tobramycin <=1 S Urinalysis With 02/28/2017 [facility] Urine Color YELLOW Yellow 22 Microscopic (315)- - Urine Clarity CLOUDY Clear Urine Glucose - Dipstick NEGATIVE mg/dL Negative Urine Bilirubin - Dipstick NEGATIVE Negative Urine Ketone NEGATIVE mg/dL Negative Urine Specific [place] 1.010 N 1.010-1.030 Urine Blood LARGE Abnormal Negative Urine PH 6.0 Low 6.5-7.5 Urine Protein - Dipstick TRACE mg/dL Negative Urine Urobilinogen - Dipstick 0.2 E.U./dL N 0.2-1.0 Urine Nitrite - Dipstick NEGATIVE Negative Urine Leuk Esterase MODERATE Abnormal Negative Urine RBC TNTC rbc/hpf High 0-2 Urine WBC TNTC wbc/hpf High 0-7 Urine Epithelial Cells FEW /lpf None Seen Urine Amorph Sediment SMALL Negative Source: URINE, CLEAN CAT <SEE NOTE> 23 Urine Culture 02/28/2017 [facility] Urine Culture ESCHERICHIA COLI Abnormal 24 (315)- - Quantity > 100,000 CFU/mL N 25 Urine Culture URETHRAL SENIA Quantity > 100,000 CFU/mL N 26 Escherichia Coli 02/28/2017 [facility] Nitrofurantoin 64 I (315)- - Trimethoprim/Sulfamethoxazole >=320 R Ampicillin >=32 R Cefazolin <=4 S Ampicillin/Sulbactam >=32 R Ciprofloxacin <=0.25 S Piperacillin/Tazobactam <=4 S Ceftazidime <=1 S Ceftriaxone <=1 S Cefepime <=1 S Levofloxacin <=0.12 S Imipenem <=0.25 S Gentamicin >=16 R Tobramycin 8 I Laboratory test 01/28/2017 [place] Urine Culture Microbiology res 27 finding <SEE NOTE> CBC With [facility] 4.1-11.0 RBC 4.94 M/uL [...] Abs Basophils 0.0 K/uL 0.0-0.3 Comprehensive Met Panel-FCMG 01/28/2017 [facility] Sodium 142 mmol/L 135- 146 28 Potassium 3.8 mmol/L 3.5-5.2 Chloride# 102 mmol/L 97-110 29 Carbon Dioxide 28 mmol/L 24-34 Glucose 71 mg/dL 70-105 BUN 15 mg/dL 6-26 Creatinine 1.1 mg/dL 0.5-1.4 Calcium 10.1 mg/dL 8.5-10.2 Total Protein 7.1 g/dL 6.0-8.0 Albumin 4.6 g/dL 3.6-4.9 Globulin 2.5 g/dL 2.0-3.5 A/G Ratio 1.8 Ratio 1.0-2.2 Total Bilirubin 0.5 mg/dL 0.1-1.3 Alkaline Phosphatase 99 U/L 24-140 Alt 12 U/L 3-42 Ast 17 U/L 8-42 Susie Egfr 59 Low >60 30 Non Susie Egfr 48 Low >60 31 Anion Gap 12 mmol/L 7-16 32 Protime 01/28/2017 [facility] Protime 12.3 seconds N 12.0-14.4 33 Lab Dept [phone] Inr 0.9 N 0.9-1.1 34 Laboratory test 01/28/2017 [facility] Act Partial 29.6 seconds N 23.4-35.0 35 finding Lab Dept Thrombo Time [phone] Urine Culture 12/18/2016 [facility] Urine URETHRAL 36 (315)- - Culture SENIA Quantity 10,000 - 50,000 <SEE NOTE> N 37 CBS W/Automated Diff 12/12/2016 [facility] White Blood 8.0 K/uL N 3.1-10.7 38 (315)- - Count Red Blood Count 4.78 M/uL N 3.90-5.40 Hemoglobin 13.8 gm/dL N 11.6-15.8 Hematocrit 40.6 % N 36.0-46.1 Mean Cell Volume 84.9 fl N 80.9-99.0 Mean Corpuscular HGB 28.9 pg N 25.9-32.7 Mean Corpuscular HGB Conc 34.0 g/dL N 30.8-34.3 Platelet Count 231 K/uL N 150-400 Red Cell Distri Width SD 39.6 fl N 3-47 Red Cell Distri Width %CV 13.1 % N 11.7-14.4 Mean Platelet Volume 10.7 fL N 8.9-12.4 Neut% 59.1 % N 40.4-72.8 Lymph % 27.8 % N 20.0-42.0 [place] % 10.9 % N 4.3-13.2 Eo% 1.9 % N 0.0-6.6 Bas% 0.3 % N 0.0-1.1 Neut# 4.70 K/uL N 1.8-7.0 Lymph # 2.21 K/uL N 1.0-4.0 [place] # 0.87 K/uL N 0.3-0.9 Eos # 0.15 K/uL N 0.0-0.5 Baso # 0.02 K/uL N 0.0-0.1 Laboratory test 12/12/2016 [facility] Lipase 104 U/L N 73-393 finding (315)- - Lactic Acid 12/12/2016 [facility] Lactic Acid 0.5 mmol/L N 0.4-1.9 (315)- - Lab Reflex >2.0 for Sepsis? Y Laboratory test 12/12/2016 [facility] Occult NEGATIVE Negative 39 finding (315)- - Blood,Stool Urinalysis With 12/12/2016 [facility] Urine Color YELLOW Yellow Microscopic (315)- - Urine Clarity CLEAR Clear Urine Glucose - Dipstick NEGATIVE mg/dL Negative Urine Bilirubin - Dipstick NEGATIVE Negative Urine Ketone NEGATIVE mg/dL Negative Urine Specific [place] 1.015 N 1.010-1.030 Urine Blood LARGE Abnormal Negative Urine PH 5.5 Low 6.5-7.5 Urine Protein - Dipstick 30 mg/dL High Negative Urine Urobilinogen - Dipstick 0.2 E.U./dL N 0.2-1.0 Urine Nitrite - Dipstick NEGATIVE Negative Urine Leuk Esterase SMALL Abnormal Negative Urine RBC >50 rbc/hpf High 0-2 Urine WBC > 50 wbc/hpf High 0-7 Urine Epithelial Cells VERY FEW /lpf None Seen Urine Bacteria VERY FEW None Seen Urine Hyaline Cast 0-2 #/lpf None Seen Urine Mucus SMALL None Seen Source: URINE, CLEAN CAT <SEE NOTE> 40 Urine Culture 12/12/2016 [facility] Urine Culture ESCHERICHIA COLI Abnormal 41 (315)- - Quantity 10,000 - 50,000 <SEE NOTE> N 42 Urine Culture MIXED URETHRAL F <SEE NOTE> 43 Quantity 10,000 - 50,000 <SEE NOTE> N 44 Escherichia Coli 12/12/2016 [facility] Nitrofurantoin <= 16 S (315)- - Trimethoprim/Sulfamethoxazole <=20 S Ampicillin >=32 R Cefazolin <=4 S Ampicillin/Sulbactam >=32 R Ciprofloxacin <=0.25 S Piperacillin/Tazobactam <=4 S Ceftazidime <=1 S Ceftriaxone <=1 S Cefepime <=1 S Levofloxacin <=0.12 S Imipenem <=0.25 S Gentamicin <=1 S Tobramycin <=1 S CBC With Auto Diff 11/21/2016 [facility] WBC 6.8 K/uL 4.1-11.0 45 RBC 4.76 M/uL 4.00-5.40 Hemoglobin 13.5 gm/dL 12.0-16.0 Hematocrit 40.5 % 36.0-47.0 MCV 85.1 fL 80.0-97.0 MCH 28.4 pg 27.0-32.0 MCHC 33.3 g/dL 32.0-36.0 RDW 14.1 % 11.5-14.5 PLT Count 211 K/ul 140-400 Neutrophil 59.9 % 35.0-75.0 Lymphocyte 29.3 % 16.0-52.0 Monocyte 8.1 % 2.0-10.0 Eosinophil 2.1 % 0.0-5.0 Basophil 0.6 % 0.0-4.0 Abs Neutrophils 4.1 K/uL 2.1-8.0 Abs Lymphocytes 2.0 K/uL 0.8-5.5 Abs Monocytes 0.6 K/uL 0.1-1.0 Abs Eosinophils 0.1 K/uL 0.0-0.5 Abs Basophils 0.0 K/uL 0.0-0.3 Basic (BMP) 11/21/2016 [facility] Sodium 145 mmol/L 135-146 46 Potassium 3.8 mmol/L 3.5-5.2 Chloride# 107 mmol/L 97-110 47 Carbon Dioxide 30 mmol/L 24-34 Glucose 100 mg/dL 70-105 BUN 12 mg/dL 6-26 Creatinine 1.0 mg/dL 0.5-1.4 Calcium 9.6 mg/dL 8.5-10.2 Non Susie Egfr 55 Low >60 48 Susie Egfr >60 >60 49 Anion Gap 12 mmol/L 7-16 50 Lipid Treatment 11/21/2016 [facility] Cholesterol 203 mg/dL High 50-199 Triglycerides 225 mg/dL High 30-150 HDL 40 mg/dL Low 45-85 51 Chol/ HDL Ratio 5.1 ratio 3.7-5.6 VLDL 45 mg/dL High 2-29 LDL (Calc) 119 mg/dL 20-129 52 Alt 12 U/L 3-42 Ast 13 U/L 8-42 Laboratory test finding 11/21/2016 [facility] Vit D,25 Hydroxy 37 ng/mL 31- 100 CBC With Auto Diff 03/17/2016 [facility] WBC 5.4 K/uL 4.1-11.0 RBC 4.55 M/uL 4.00-5.40 Hemoglobin 13.2 gm/dL 12.0-16.0 Hematocrit 38.7 % 36.0-47.0 MCV 85.2 fL 80.0-97.0 MCH 29.0 pg 27.0-32.0 MCHC 34.0 g/dL 32.0-36.0 RDW 13.3 % 11.5-14.5 PLT Count 214 K/ul 140-400 Neutrophil 33.1 % Low 35.0-75.0 Lymphocyte 51.8 % 16.0-52.0 Monocyte 10.8 % High 2.0-10.0 Eosinophil 3.7 % 0.0-5.0 Basophil 0.6 % 0.0-4.0 Abs Neutrophils 1.8 K/uL Low 2.1-8.0 Abs Lymphocytes 2.8 K/uL 0.8-5.5 Abs Monocytes 0.6 K/uL 0.1-1.0 Abs Eosinophils 0.2 K/uL 0.0-0.5 Abs Basophils 0.0 K/uL 0.0-0.3 Basic (BMP) 03/17/2016 [facility] Sodium 142 mmol/L 134-142 Potassium 3.7 mmol/L 3.5-5.2 Chloride 104 mmol/L 97-109 Carbon Dioxide 33 mmol/L 24-34 Glucose 89 mg/dL 70-105 BUN 14 mg/dL 6- Creatinine 1.0 mg/dL 0.5-1.4 Calcium 9.4 mg/dL 8.5-10.2 Anion Gap 9 mmol/L 6-14 Non Susie Egfr 54 Low >60 53 Susie Egfr >60 >60 54 Lipid Treatment 03/17/2016 [facility] Cholesterol 194 mg/dL 50-199 Triglycerides 213 mg/dL High 30-200 HDL 39 mg/dL Low 45-85 55 Chol/ HDL Ratio 5.0 ratio 3.7-5.6 VLDL 43 mg/dL High 2-29 LDL (Calc) 112 mg/dL 20-129 56 Alt 10 U/L 3-42 Ast 13 U/L 8-42 Laboratory test finding 03/17/2016 [facility] Vit D,25 Hydroxy 50 ng/mL 31- 100 TSH 2.42 uIU/mL 0.35-4.94 Vitamin B12 246 pg/mL 180-914 Iron Panel 03/17/2016 [facility] Iron, Total 69 g/dL 50-170 Transferrin 287.7 mg/dL 203.0-362.0 Tibc (calc) 403 g/dL 261-478 % Iron Saturation 17.1 % 13.0-45.0 Laboratory test 02/27/2016 [facility] Urine Culture Microbiology res 57 finding <SEE NOTE> CBC With Auto Diff 04/24/2015 [facility] WBC 5.9 K/uL 4.1-11.0 RBC 4.67 M/uL 4.00-5.40 Hemoglobin 13.9 gm/dL 12.0-16.0 Hematocrit 41.5 % 36.0-47.0 MCV 88.9 fL 80.0-97.0 MCH 29.8 pg 27.0-32.0 MCHC 33.6 g/dL 32.0-36.0 RDW 13.5 % 11.5-14.5 PLT Count 188 K/ul 140-400 Neutrophil 49.7 % 35.0-75.0 Lymphocyte 37.4 % 16.0-52.0 Monocyte 9.4 % 2.0-10.0 Eosinophil 2.8 % 0.0-5.0 Basophil 0.7 % 0.0-4.0 Abs Neutrophils 2.9 K/uL 2.1-8.0 Abs Lymphocytes 2.2 K/uL 0.8-5.5 Abmon 0.6 K/uL 0.1-1.0 Abs Eosinophils 0.2 K/uL 0.0-0.5 Abs Basophils 0.0 K/uL 0.0-0.3 Basic (BMP) 04/24/2015 [facility] Sodium 141 mmol/L 134-142 Potassium 4.1 mmol/L 3.5-5.2 Chloride 106 mmol/L 97-109 Carbon Dioxide 32 mmol/L 24-34 Glucose 94 mg/dL 70-105 BUN 15 mg/dL 6-26 Creatinine 0.9 mg/dL 0.5-1.4 Calcium 9.5 mg/dL 8.5-10.2 Anion Gap 7 mmol/L 6-14 Non Susie Egfr >60 >60 58 Susie Egfr >60 >60 59 Lipid Treatment 04/24/2015 [facility] Cholesterol 196 mg/dL 50-199 Triglycerides 141 mg/dL 30-150 HDL 43 mg/dL Low 45-85 60 Chol/ HDL Ratio 4.6 ratio 3.7-5.6 VLDL 28 mg/dL 2-29 LDL (Calc) 125 mg/dL 20-129 61 Alt 13 U/L 3-42 Ast 16 U/L 8-42 Laboratory test 04/24/2015 [facility] Vit D,25 Hydroxy 69 ng/mL 31-100 finding HCV Rna Quant PCR 02/23/2015 [facility] HCV Rna Quant <1.2 logIU 62 [phone] PCR HCV Rna Real PCR <15 IU/mL HCV Rna Quant Inter Not Detected 63 Eer HCV Quant RT PCR See Note 64 Basic (BMP) 01/24/2015 [facility] Sodium 138 mmol/L 134-142 Potassium 4.4 mmol/L 3.5-5.2 Chloride 101 mmol/L 97-109 Carbon Dioxide 29 mmol/L 24-34 Glucose 83 mg/dL 70-105 BUN 10 mg/dL 6-26 Creatinine 0.9 mg/dL 0.5-1.4 Calcium 9.8 mg/dL 8.5-10.2 Anion Gap 12 mmol/L 6-14 Non Susie Egfr >60 >60 65 Susie Egfr >60 >60 66 Laboratory test 01/18/2015 [facility] Troponin-I < 0.015 67 finding (315)- - ng/mL Laboratory test 01/17/2015 N2N/CCD Import Alanine 23 12-78 finding Aminotransferase (Alt/SGPT) Aspartate Amino Transf (Ast/Sgot) 12 Low [...] Level 139 136-145 Total Bilirubin 0.3 0.2-1.0 Laboratory test 01/17/2015 [facility] D-Dimer, 0.28 ug/ mL 68 finding (315)- - Quantitative CBC W/Automated 01/17/2015 [facility] White Blood Count 10.0 K/uL 3.1-10 Diff (315)- - .7 Red Blood Count 4.72 M/uL 3.90-5.40 Hemoglobin [...] 40.4-72.8 Lymph % 46.3 % High 17.0-46.1 [place] % 9.8 % 4.3-13.2 Eo% 2.0 % 0.0-6.6 Bas% 0.2 % 0.0-1.1 Neut# 4.18 K/uL 1.0-7.0 Lymph # 4.64 K/uL 1.8-7.0 [place] # 0.98 K/uL High 0.3-0.9 Eos # 0.20 K/uL 0.0-0.5 Baso # 0.02 K/uL 0.0-0.1 Laboratory test 01/17/2015 [facility] Troponin-I < 0.015 69 finding (315)- - ng/mL Comprehensive 01/17/2015 [facility] Glucose 75 mg/dL 74-106 Metabolic Panel (315)- - BUN 12 mg/dL 7-18 Creatinine 0.9 mg/dL 0.6-1.3 Glom Filtration Rate, Estimate >60 mL/min >60 If >60 mL/min >60 70 BUN/Creat 13.3 ratio Sodium 139 mmol/L 136-145 Potassium 3.0 mmol/L Low 3.5-5.1 Chloride 104 mmol/L 98-107 Carbon Dioxide 32 mmol/L 21-32 Anion Gap 3 mEq/L Low 8-16 Calcium 8.8 mg/dL 8.5-10.1 Total Protein 6.9 g/dL 6.4-8.2 Albumin 3.4 g/dL 3.4-5.0 Globulin 3.5 g/dL 1.9-4.3 Alb/Glob 1.0 ratio Bilirubin,Total 0.3 mg/dL 0.2-1.0 Sgot/Ast 12 U/L Low 15-37 71 SGPT/Alt 23 U/L 12-78 Alkaline Phosphatase 97 U/L 45-117 Laboratory test finding 08/15/2014 [facility] Vit D,25 Hydroxy 50 ng/mL 31- 100 72 Basic (BMP) 08/15/2014 [facility] Sodium 141 mmol/L 134-142 Potassium 4.0 mmol/L 3.5-5.2 Chloride 102 mmol/L 97-109 Carbon Dioxide 28 mmol/L 24-34 Glucose 90 mg/dL 70-105 BUN 17 mg/dL 6-26 Creatinine 0.9 mg/dL 0.5-1.4 Calcium 9.5 mg/dL 8.5-10.2 Anion Gap 15 mmol/L High 6-14 Non Susie Egfr >60 >60 73 Susie Egfr >60 >60 74 Lipid Treatment 08/15/2014 [facility] Cholesterol 186 mg/dL 50-199 Triglycerides 228 mg/dL High 30-150 HDL 42 mg/dL Low 45-85 75 Chol/ HDL Ratio 4.4 ratio 3.7-5.6 VLDL 46 mg/dL High 2-29 LDL (Calc) 98 mg/dL 20-99 76 Alt 14 U/L 3-42 Ast 15 U/L 8-42 1 Per NCEP ATP III Guidelines: Results lower than 40 mg/dL are suggestive of increased risk for coronary artery disease. Results > or=to 60 mg/dL are considered a negative risk factor. 2 Per NCEP ATP III Guidelines: Normal Population <130 Patients with medical conditions: CHD/DM Optimal: <100 Borderline high: 130-159 High: 160-189 Very high: >189 3 Updated reference range on new analyzer 4 Updated reference range on new analyzer 5 Concerning GFR Guidelines: Normal function or mild [...] drugs that are excreted by the kidneys. 6 Concerning GFR Guidelines for Americans: Normal function or mild renal disease, if clinically at risk: >/=60 mL/min Moderately decreased: 30-59 Severely decreased: 15-29 Renal failure: <15 7 Updated Reference Range 8 Microbiology results SOURCE Random urine FINAL RESULT No growth 9 Microbiology results SOURCE Clean Catch Midstream FINAL RESULT 50,000 CFU/ML Mixed urogenital senia consistent with contamination. Request fresh specimen if indicated. 10 SCHEDULE 1 WEEK PRIOR TO NEXT VISIT 11 Updated reference range on new analyzer 12 Updated reference range on new analyzer 13 Concerning GFR Guidelines: Normal function or mild [...] drugs that are excreted by the kidneys. 14 Concerning GFR Guidelines for Americans: Normal function or mild renal disease, if clinically at risk: >/=60 mL/min Moderately decreased: 30-59 Severely decreased: 15-29 Renal failure: <15 15 Updated Reference Range 16 Per NCEP ATP III Guidelines: Results lower than 40 mg/dL are suggestive of increased risk for coronary artery disease. Results > or=to 60 mg/dL are considered a negative risk factor. 17 Per NCEP ATP III Guidelines: Normal Population <130 Patients with medical conditions: CHD/DM Optimal: <100 Borderline high: 130-159 High: 160-189 Very high: >189 18 Clinical Guidelines for recommended serum 25(OH)Vitamin D Deficient at less than 20 ng/mL Insufficient at 20 to <30 ng/mL Sufficient at 30-100 ng/mL Toxicity at greater than 100 ng/mL 19 R31.9 20 KLEBSIELLA PNEUMONIAE 21 10,000 - 50,000 CFU/mL 22 urinary tract ISSUES 23 URINE, CLEAN CATCH 24 ESCHERICHIA COLI 25 > 100,000 CFU/mL 26 > 100,000 CFU/mL 27 Microbiology results FINAL RESULT 50,000 CFU/ML Mixed urogenital senia consistent with contamination. Request fresh specimen if indicated. 28 Updated reference range on new analyzer 29 Updated reference range on new analyzer 30 Concerning GFR Guidelines for Americans: Normal function or mild renal disease, if clinically at risk: >/=60 mL/min Moderately decreased: 30-59 Severely decreased: 15-29 Renal failure: <15 31 Concerning GFR Guidelines: Normal function or mild [...] drugs that are excreted by the kidneys. 32 Updated reference range on new analyzer 33 Z01.818 34 THERAPEUTIC INR RANGE: 2.0 - 3.0 DVT, Pulmonary embolus, prophylaxis against venous thrombosis or systemic embolization in high risk patients. 2.5 - 3.5 Mechanical heart valves 35 Is patient on heparin protocol? <Blank> Is patient on anticoagulants? <Blank> 36 N39.0 R31.9 37 10,000 - 50,000 CFU/mL 38 L SIDED PAIN/BACK, SENT BY CC 39 Method: Snaptiva Hemoccult Card 40 URINE, CLEAN CATCH 41 ESCHERICHIA COLI 42 10,000 - 50,000 CFU/mL 43 MIXED URETHRAL SENIA 44 10,000 - 50,000 CFU/mL 45 SCHEDULE 1 WEEK PRIOR TO NEXT VISIT 46 Updated reference range on new analyzer 47 Updated reference range on new analyzer 48 Concerning GFR Guidelines: Normal function or mild [...] drugs that are excreted by the kidneys. 49 Concerning GFR Guidelines for Americans: Normal function or mild renal disease, if clinically at risk: >/=60 mL/min Moderately decreased: 30-59 Severely decreased: 15-29 Renal failure: <15 50 Updated reference range on new analyzer 51 Per NCEP ATP III Guidelines: Results lower than 40 mg/dL are suggestive of increased risk for coronary artery disease. Results > or=to 60 mg/dL are considered a negative risk factor. 52 Per NCEP ATP III Guidelines: Normal Population <130 Patients with medical conditions: CHD/DM Optimal: <100 Borderline high: 130-159 High: 160-189 Very high: >189 53 Concerning GFR Guidelines: Normal function or mild [...] drugs that are excreted by the kidneys. 54 Concerning GFR Guidelines for Americans: Normal function or mild renal disease, if clinically at risk: >/=60 mL/min Moderately decreased: 30-59 Severely decreased: 15-29 Renal failure: <15 55 Per NCEP ATP III Guidelines: Results lower than 40 mg/dL are suggestive of increased risk for coronary artery disease. Results > or=to 60 mg/dL are considered a negative risk factor. 56 Per NCEP ATP III Guidelines: Normal Population <130 Patients with medical conditions: CHD/DM Optimal: <100 Borderline high: 130-159 High: 160-189 Very high: >189 57 Microbiology results SOURCE URINE FINAL RESULT No growth 58 Concerning GFR Guidelines: Normal function or mild [...] drugs that are excreted by the kidneys. 59 Concerning GFR Guidelines for Americans: Normal function or mild renal disease, if clinically at risk: >/=60 mL/min Moderately decreased: 30-59 Severely decreased: 15-29 Renal failure: <15 60 Per NCEP ATP III Guidelines: Results lower than 40 mg/dL are suggestive of increased risk for coronary artery disease. Results > or=to 60 mg/dL are considered a negative risk factor. 61 Per NCEP ATP III Guidelines: Normal Population <130 Patients with medical conditions: CHD/DM Optimal: <100 Borderline high: 130-159 High: 160-189 Very high: >189 62 INTERPRETIVE INFORMATION: Hepatitis C Virus by Quantitative [...] Cell, Tissues and Cellular Tissue-Based Products (HCT/P). 63 Reference range: Not Detected 64 To download an enhanced report for this test go to: [email or web address] Performed by [employer] [address] [place] [id number] [email or web address], Ag Restrepo MD, Lab. Director 65 Concerning GFR Guidelines: Normal function or mild [...] drugs that are excreted by the kidneys. 66 Concerning GFR Guidelines for Americans: Normal function or mild renal disease, if clinically at risk: >/=60 mL/min Moderately decreased: 30-59 Severely decreased: 15-29 Renal failure: <15 67 0.0 - 0.045 ng/mL: Normal 0.046 - 0.5 ng/mL: Suggestive 0.6 - 1.5 ng/mL: Consistent 68 <=0.49 ug/mL - Low likelihood of DIC, DVT or Pulmonary Embolism >0.49 ug/mL - Additional testing should be done to rule out DIC, DVT, or Pulmonary embolism as clinically indicated. ([facility] has established a 97.89% negative predictive value for thrombotic disease when a cutoff value of 0.5 ug/mL is used.) 69 0.0 - 0.045 ng/mL: Normal 0.046 - 0.5 ng/mL: Suggestive 0.6 - 1.5 ng/mL: Consistent 70 Note: Persistent reduction for 3 months or more in an eGFR <60 mL/min/1.73 m2 defines CKD. Patients with eGFR values >/=60 mL/min/1.73 m2 may also have CKD if evidence of persistent proteinuria is present. The original MDRD equation for estimated GFR is not valid for patients less than 18 years of age. Additional information may be found at www.kdoqi.org. 71 Values below the stated reference ranges of AST and ALT can be seen in normal populations. Clinical correlation is suggested. 72 SCHEDULE 1 WEEK PRIOR TO VISIT 73 Concerning GFR Guidelines: Normal function or mild [...] drugs that are excreted by the kidneys. 74 Concerning GFR Guidelines for Americans: Normal function or mild renal disease, if clinically at risk: >/=60 mL/min Moderately decreased: 30-59 Severely decreased: 15-29 Renal failure: <15 75 Per NCEP ATP III Guidelines: Results lower than 40 mg/dL are suggestive of increased risk for coronary artery disease. Results > or=to 60 mg/dL are considered a negative risk factor. 76 Per NCEP ATP III Guidelines: Normal Population <130 Patients with medical conditions: CHD/DM Optimal: <100 Borderline high: 130-159 High: 160-189 Very high: >189 Procedures Date Code Description Status 07/12/2018 38042 Measure Blood Oxygen Level Single Determination Completed 06/21/2018 59937 Measure Blood Oxygen Level Single Determination Completed 11/10/2017 [id number] Colonoscopy Completed 05/11/2017 56525 Remove Impact Cerumen Irrigation/Lavage Completed 04/28/2017 [id number] Mammogram Completed 09/04/2016 52408 Electrocardiogram Complete Completed 09/04/2016 93569 X-Ray Chest Two Views Frontal & Lateral Completed 03/24/2016 [id number] Mammogram Completed 05/10/2015 31212 X-Ray Hip Complete Two Views Completed 05/10/2015 01901 X-Ray Spine Lumbosacral Ap & Lateral Completed 03/12/2015 [id number] Mammogram Completed 08/07/2014 97608 Electrocardiogram Complete Completed 06/25/2011 [id number] Bone Mineral Density Test Completed Encounters Type Date Location Provider Dx Diagnosis Office Visit 06/28/2018 4:00p [facility] Jazmine Cabrera PA R05 Cough R91.1 Solitary pulmonary nodule Z68.27 Body mass index (BMI) 27.0-27.9, adult Office Visit 06/21/2018 1:00p [facility] Jazmine Cabrera PA R05 Cough Z68.27 Body mass index (BMI) 27.0-27.9, adult Office Visit 03/15/2018 1:15p Jazmine Hill PA I10 Essential ( primary) hypertension E78.2 Mixed hyperlipidemia F41.1 Generalized anxiety disorder F33.1 Major depressive disorder, recurrent, moderate J44.9 Chronic obstructive pulmonary disease, unspecified K21.0 Gastro-esophageal reflux disease with esophagitis R73.9 Hyperglycemia, unspecified M54.2 Cervicalgia Z68.28 Body mass index (BMI) 28.0-28.9, adult Office Visit 02/23/2018 10:30a [facility] Jazmine Cabrera PA M54.2 Cervicalgia R41.82 Altered mental status, unspecified Z68.28 Body mass index (BMI) 28.0-28.9, adult Office Visit 02/09/2018 2:30p [facility] Kumar Grafia, R30.0 Dysuria [employer] PUBL[employer]ER Office Visit 11/11/2017 3:30p [facility] Jazmine Cabrera PA J44.9 Chronic obstructive pulmonary disease, unspecified F33.1 Major depressive disorder, recurrent, moderate E78.2 Mixed hyperlipidemia I10 Essential (primary) hypertension F17.210 Nicotine dependence, cigarettes, uncomplicated K21.0 Gastro-esophageal reflux disease with esophagitis F41.1 Generalized anxiety disorder Z68.27 Body mass index (BMI) 27.0-27.9, adult Office Visit 08/03/2017 11:00a [facility] Jazmine Cabrera PA J44.9 Chronic obstructive pulmonary disease, unspecified F33.1 Major depressive disorder, recurrent, moderate E78.2 Mixed hyperlipidemia E55.9 Vitamin D deficiency, unspecified I10 Essential (primary) hypertension F17.210 Nicotine dependence, cigarettes, uncomplicated K21.0 Gastro-esophageal reflux disease with esophagitis F41.9 Anxiety disorder, unspecified F10.10 Alcohol abuse, uncomplicated F41.1 Generalized anxiety disorder Z68.27 Body mass index (BMI) 27.0-27.9, adult Office Visit 05/11/2017 4:00p [facility] Jazmine Cabrera PA H92.01 Otalgia, RIGHT ear H61.21 Impacted cerumen, RIGHT ear Office Visit 03/30/2017 10:00a [facility] Daniel Verde DO I10 Essential ( primary) hypertension E78.2 Mixed hyperlipidemia E55.9 Vitamin D deficiency, unspecified K21.0 Gastro-esophageal reflux disease with esophagitis J44.9 Chronic obstructive pulmonary disease, unspecified F17.200 Nicotine dependence, unspecified, uncomplicated F10.10 Alcohol abuse, uncomplicated N95.9 Unspecified menopausal and perimenopausal disorder F33.1 Major depressive disorder, recurrent, moderate G47.00 Insomnia, unspecified M15.0 Primary generalized (osteo)arthritis F41.1 Generalized anxiety disorder Z12.31 Encntr screen mammogram for malignant neoplasm of breast Z86.010 Personal history of colonic polyps Office Visit 01/28/2017 11:00a [facility] Jazmine Cabrera PA Z01.818 Encounter for other preprocedural examination R31.9 Hematuria, unspecified Office Visit 11/27/2016 10:00a [facility] Daniel Verde DO I10 Essential ( primary) hypertension E78.2 Mixed hyperlipidemia E55.9 Vitamin D deficiency, unspecified G56.00 Carpal tunnel syndrome, unspecified upper limb K21.0 Gastro-esophageal reflux disease with esophagitis J44.9 Chronic obstructive pulmonary disease, unspecified F17.200 Nicotine dependence, unspecified, uncomplicated F10.10 Alcohol abuse, uncomplicated N95.9 Unspecified menopausal and perimenopausal disorder F33.1 Major depressive disorder, recurrent, moderate G47.00 Insomnia, unspecified M15.0 Primary generalized (osteo)arthritis Office Visit 11/24/2016 1:45p [facility] Daniel Verde DO F41.1 Generalized anxiety disorder Z87.891 Personal history of nicotine dependence Office Visit 09/04/2016 2:00p [facility] Daniel Verde, Z01.818 Encounter for other DO preprocedural examination G56.00 Carpal tunnel syndrome, unspecified upper limb I10 Essential (primary) hypertension E78.2 Mixed hyperlipidemia E55.9 Vitamin D deficiency, unspecified F41.1 Generalized anxiety disorder K21.0 Gastro-esophageal reflux disease with esophagitis J44.9 Chronic obstructive pulmonary disease, unspecified F17.200 Nicotine dependence, unspecified, uncomplicated F10.10 Alcohol abuse, uncomplicated N95.9 Unspecified menopausal and perimenopausal disorder F33.1 Major depressive disorder, recurrent, moderate G47.00 Insomnia, unspecified M15.0 Primary generalized (osteo)arthritis Office Visit 07/29/2016 11:15a [facility] Daniel Verde DO I10 Essential ( primary) hypertension E78.2 Mixed hyperlipidemia E55.9 Vitamin D deficiency, unspecified F41.1 Generalized anxiety disorder K21.0 Gastro-esophageal reflux disease with esophagitis J44.9 Chronic obstructive pulmonary disease, unspecified F17.200 Nicotine dependence, unspecified, uncomplicated F10.10 Alcohol abuse, uncomplicated N95.9 Unspecified menopausal and perimenopausal disorder F33.1 Major depressive disorder, recurrent, moderate G47.00 Insomnia, unspecified M15.0 Primary generalized (osteo)arthritis Z00.00 Encntr for general adult medical exam w/o abnormal findings Z23 Encounter for immunization Z68.28 Body mass index (BMI) 28.0-28.9, adult Office Visit 03/18/2016 1:45p Daniel Albarran, DO I10 Essential ( primary) hypertension E78.2 Mixed hyperlipidemia E55.9 Vitamin D deficiency, unspecified F41.1 Generalized anxiety disorder K21.0 Gastro-esophageal reflux disease with esophagitis J44.9 Chronic obstructive pulmonary disease, unspecified F17.200 Nicotine dependence, unspecified, uncomplicated F10.10 Alcohol abuse, uncomplicated N95.9 Unspecified menopausal and perimenopausal disorder F33.1 Major depressive disorder, recurrent, moderate G47.00 Insomnia, unspecified M15.0 Primary generalized (osteo)arthritis Z12.31 Encntr screen mammogram for malignant neoplasm of breast Office Visit 02/26/2016 2:30p Daniel Albarran DO N20.0 Calculus of kidney R30.0 Dysuria Office Visit 12/18/2015 1:45p [facility] Daniel Verde, M51.06 Intervertebral disc 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 with myelopathy, lumbar region Office Visit 11/20/2015 11:00a [facility] Homar, M54.31 Sciatica, RIGHT side Ibeth, [employer] Office Visit 08/28/2015 4:15p [facility] Daniel Verde, M54.31 Sciatica, RIGHT side DO Office Visit 06/07/2015 8:15a [facility] Daniel Verde, H65.03 Acute serous otitis DO media, bilateral Office Visit 05/10/2015 1:45p [facility] Daniel Verde, I10 Essential ( primary) DO hypertension E78.2 Mixed hyperlipidemia E55.9 Vitamin D deficiency, unspecified F41.1 Generalized anxiety disorder K21.0 Gastro-esophageal reflux disease with esophagitis J44.9 Chronic obstructive pulmonary disease, unspecified F17.200 Nicotine dependence, unspecified, uncomplicated F10.10 Alcohol abuse, uncomplicated N95.9 Unspecified menopausal and perimenopausal disorder F33.1 Major depressive disorder, recurrent, moderate G47.00 Insomnia, unspecified M15.0 Primary generalized (osteo)arthritis Office Visit 01/24/2015 9:30a [facility] Daniel Verde DO 300.02 Anxiety Disorder Generalized 276.8 Hypopotassemia 786.59 Pain Chest Other 530.11 Esophagitis Reflux 496 COPD Airway Obstruction Chronic Not Class Elsewhere Office Visit 12/28/2014 1:15p [facility] Daniel Verde DO 300.02 Anxiety Disorder Generalized 305.1 Tobacco Use Disorder 305.00 Alcohol Abuse Unspec 401.1 Hypertension Benign 272.2 Hyperlipidemia Mixed 530.81 Esophageal Reflux 553.3 Hernia Diaphragmatic 496 COPD Airway Obstruction Chronic Not Class Elsewhere 627.9 Menopausal & Postmenopausal Disorder Unspec 296.32 Depressive Disorder Major Recurrent Moderate 780.52 Sleep Disturbance, Insomnia Unspecified 268.9 Vitamin D Deficiency Unspec Office Visit 12/20/2014 1:00p [facility] Ibeth Graf, 300.02 Anxiety Disorder [employer] PUBL[employer]ER Generalized 305.1 Tobacco Use Disorder 305.00 Alcohol Abuse Unspec Office Visit 08/22/2014 1:00p [facility] Daniel Verde DO 401.1 Hypertension Benign 272.2 Hyperlipidemia Mixed 530.81 Esophageal Reflux 553.3 Hernia Diaphragmatic 496 COPD Airway Obstruction Chronic Not Class Elsewhere 627.9 Menopausal & Postmenopausal Disorder Unspec 296.32 Depressive Disorder Major Recurrent Moderate 300.01 Panic Disorder W/O Agoraphobia 300.02 Anxiety Disorder Generalized 780.52 Sleep Disturbance, Insomnia Unspecified 305.1 Tobacco Use Disorder 305.00 Alcohol Abuse Unspec Office Visit 08/07/2014 2:30p [facility] Daniel Verde DO 553.3 Hernia Diaphragmatic 530.11 Esophagitis Reflux 786.59 Pain Chest Other Plan of Treatment Future Appointment(s):07/28/2018 8:05 am - Schedule, Laboratory at [facility]2018 10:00 am - Jazmine Cabrera PA at [facility]07/12/2018 - Jazmine Cabrera PAJ06.9 Acute upper respiratory infection, unspecifiedNew Medication:Prednisone 20 mg - 2 tablets by mouth for 5 daysComments:Has finished zithromaxWill treat with prednisoneSupportive careCall with worsening/persisting symptomsFollow up: PrnF17.218 Nicotine dependence, cigarettes, with other nicotine-inducedNew Medication:[employer] Nicotine Transdermal System Step 2 14 mg/24HR - Apply one patch dailyComments:Script for patches sent
--- OUTSIDE RECORDS SUMMARY | 2018-07-27 14:16 | XMS REPORT | Continuity of Care Document ---
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 Jazmine Cabrera PA-C Primary Care Physician Unavailable Payers Type Date Identification Numbers Payment Provider Subscriber Policy Number: [id number] Medicare Sanna Flores PayID: [id number] [address] [place] [address] Policy Number: [id number] [facility] Sanna Flores PayID: [id number] [address] [place] [address] Advance Directives Description No Information Available Problems Description No Information Family History Date Family Member(s) Problem(s) Comments : (1962) Father due to Auto Accident Mother due to Heart Attack () Social History Type Date Description Comments Sex Unknown Marital Status Home Environment Lives With 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 Tobacco Use Start: Unknown Current Cigarette Smoker 5-10 Cigarettes Daily Smoking Status Reviewed: 06/29/18 Current Cigarette Smoker 5-10 Cigarettes Daily ETOH Use 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 Tobacco Use Start: Unknown Patient is a current down to couple puffs smoker, smokes every day here and there Recreational Drug Use Denies Drug Use Allergies, Adverse Reactions, Alerts Date Description Reaction Status Severity Comments 06/29/2018 Benadryl Facial swelling Active 06/29/2018 Codeine Unconsciousness Active Medications Medication Date Status Form Strength Qnty SIG Indications Ordering Provider Atorvastatin Active Tablets 40mg 1 po Unknown Calcium 000 every day Buspirone HCL Active Tablets 5mg 1 by Unknown 000 mouth bid Duloxetine HCL Active Caps DR 60mg 1 po Unknown 000 Part every day Omeprazole Active Capsules DR 40mg 1 po Unknown 000 every day Tizanidine HCL Active Tablets 2mg 1 po as Unknown 000 needed mdd 3 daily Trazodone HCL Active Tablets 50mg 1 po at Unknown 000 hs Losartan Active Tablets 100-25mg 1 po Unknown Potassium/[place] 000 every chlorothiazide day Quetiapine Active Tablets 25mg 1 po at Unknown Fumarate 000 bed time Ventolin HFA Active Aerosol 108(90Base 2 puffs Unknown 000 ) mcg/Act every 4 hrs as needed Immunizations Description No Information Available Vital Signs Date Vital Result Comment 06/29/2018 1:18pm BP Systolic Sitting Right Arm 127 mmHg BP Diastolic Sitting Right Arm 78 mmHg Heart Rate 90 /min Respiratory Rate 16 /min Height 64 inches 5'4" Weight 164.00 lb BMI (Body Mass Index) 28.1 kg/m2 BSA (Body Surface Area) 1.80 m2 [place] body weight in kilograms 54 kg O2 % BldC Oximetry 97 % Results Test Date Facility Test Result H/L Range Note Basic (BMP) 01/24/2015 N2N/CCD Import Susie Egfr >60 >60 1 Anion Gap 12 mmol/L 6-14 BUN 10 mg/dL 6-26 Calcium 9.8 mg/dL 8.5-10.2 Carbon Dioxide 29 mmol/L 24-34 Chloride 101 mmol/L 97-109 Creatinine 0.9 mg/dL 0.5-1.4 Glucose 83 mg/dL 70-105 Non Susie Egfr >60 >60 2 Potassium 4.4 mmol/L 3.5-5.2 Sodium 138 mmol/L 134-142 Laboratory test finding 01/18/2015 N2N/CCD Import Troponin-I < 0.015 ng/mL 3 Laboratory test finding 01/17/2015 N2N/CCD Import Alb/Glob 1.0 ratio Albumin 3.4 g/dL 3.4-5.0 Alkaline Phosphatase 97 U/L 45-117 Anion Gap 3 mEq/L Low 8-16 BUN 12 mg/dL 7-18 BUN/Creat 13.3 ratio Bilirubin,Total 0.3 mg/dL 0.2-1.0 Calcium 8.8 mg/dL 8.5-10.1 Carbon Dioxide 32 mmol/L 21-32 Chloride 104 mmol/L 98-107 Comprehensive Metabolic Panel <pending> Creatinine 0.9 mg/dL 0.6-1.3 D-Dimer, Quantitative 0.28 ug/mL 4 Globulin 3.5 g/dL 1.9-4.3 Glom Filtration Rate, Estimate >60 mL/min >60 Glucose 75 mg/dL 74-106 If >60 mL/min >60 5 Potassium 3.0 mmol/L Low 3.5-5.1 SGPT/Alt 23 U/L 12-78 Sgot/Ast 12 U/L Low 15-37 6 Sodium 139 mmol/L 136-145 Total Protein 6.9 g/dL 6.4-8.2 Troponin-I < 0.015 ng/mL 7 CBC W/Automated Diff 01/17/2015 N2N/CCD Import Bas% 0.2 % 0.0-1.1 Baso # 0.02 K/uL 0.0-0.1 CBS W/Automated Diff <pending> Eo% 2.0 % 0.0-6.6 Eos # 0.20 K/uL 0.0-0.5 Hematocrit 40.6 % 36.0-46.1 Hemoglobin 13.7 gm/dL 11.6-15.8 Lymph # 4.64 K/uL 1.8-7.0 Lymph % 46.3 % High 17.0-46.1 Mean Cell Volume 86.0 fl 80.9-99.0 Mean Corpuscular HGB 29.0 pg 25.9-32.7 Mean Corpuscular HGB Conc 33.7 g/dL 30.8-34.3 Mean Platelet Volume 10.5 fL 8.9-12.4 [place] # 0.98 K/uL High 0.3-0.9 [place] % 9.8 % 4.3-13.2 Neut# 4.18 K/uL 1.0-7.0 Neut% 41.7 % 40.4-72.8 Platelet Count 233 K/uL 155-360 Red Blood Count 4.72 M/uL 3.90-5.40 Red Cell Distri Width %CV 12.6 % 11.7-14.4 Red Cell Distri Width SD 38.8 fl 3-47 White Blood Count 10.0 K/uL 3.1-10.7 Laboratory test finding 08/15/2014 N2N/CCD Import Alt 14 U/L 3-42 8 Ast 15 U/L 8-42 Chol/ HDL Ratio 4.4 ratio 3.7-5.6 Cholesterol 186 mg/dL 50-199 HDL 42 mg/dL Low 45-85 9 LDL (Calc) 98 mg/dL 20-99 10 Triglycerides 228 mg/dL High 30-150 VLDL 46 mg/dL High 2-29 Vit D,25 Hydroxy 50 ng/mL 31-100 Basic (BMP) 08/15/2014 N2N/CCD Import Susie Egfr >60 >60 11 Anion Gap 15 mmol/L High 6-14 BUN 17 mg/dL 6-26 Calcium 9.5 mg/dL 8.5-10.2 Carbon Dioxide 28 mmol/L 24-34 Chloride 102 mmol/L 97-109 Creatinine 0.9 mg/dL 0.5-1.4 Glucose 90 mg/dL 70-105 Non Susie Egfr >60 >60 12 Potassium 4.0 mmol/L 3.5-5.2 Sodium 141 mmol/L 134-142 1 Concerning GFR Guidelines for Americans: Normal function or mild renal disease, if clinically at risk: >/=60 mL/min Moderately decreased: 30-59 Severely decreased: 15-29 Renal failure: <15 2 Concerning GFR Guidelines: Normal function or mild [...] drugs that are excreted by the kidneys. 3 0.0 - 0.045 ng/mL: Normal 0.046 - 0.5 ng/mL: Suggestive 0.6 - 1.5 ng/mL: Consistent 4 <=0.49 ug/mL - Low likelihood of DIC, DVT or Pulmonary Embolism >0.49 ug/mL - Additional testing should be done to rule out DIC, DVT, or Pulmonary embolism as clinically indicated. ([facility] has established a 97.89% negative predictive value for thrombotic disease when a cutoff value of 0.5 ug/mL is used.) 5 Note: Persistent reduction for 3 months or more in an eGFR <60 mL/min/1.73 m2 defines CKD. Patients with eGFR values >/=60 mL/min/1.73 m2 may also have CKD if evidence of persistent proteinuria is present. The original MDRD equation for estimated GFR is not valid for patients less than 18 years of age. Additional information may be found at www.kdoqi.org. 6 Values below the stated reference ranges of AST and ALT can be seen in normal populations. Clinical correlation is suggested. 7 0.0 - 0.045 ng/mL: Normal 0.046 - 0.5 ng/mL: Suggestive 0.6 - 1.5 ng/mL: Consistent 8 SCHEDULE 1 WEEK PRIOR TO VISIT 9 Per NCEP ATP III Guidelines: Results lower than 40 mg/dL are suggestive of increased risk for coronary artery disease. Results > or=to 60 mg/dL are considered a negative risk factor. 10 Per NCEP ATP III Guidelines: Normal Population <130 Patients with medical conditions: CHD/DM Optimal: <100 Borderline high: 130-159 High: 160-189 Very high: >189 11 Concerning GFR Guidelines for Americans: Normal function or mild renal disease, if clinically at risk: >/=60 mL/min Moderately decreased: 30-59 Severely decreased: 15-29 Renal failure: <15 12 Concerning GFR Guidelines: Normal function or mild [...] drugs that are excreted by the kidneys. Procedures Date Code Description Status 02/08/2015 91433 [facility] [employer] Performance Continuous Completed Electrocardio 05/15/2008 Aspiration/Injection joint Completed intermediate(wrist/ankle/elbow/olbursa 11/25/2007 Aspiration/Injection joint Completed intermediate(wrist/ankle/elbow/olbursa 09/25/2003 Asp/Injection small joint/bursa (ie-fingers,toes) Completed 08/21/1999 Finance Charge Completed 07/17/1999 Finance Charge Completed 06/12/1999 Finance Charge Completed 05/08/1999 Finance Charge Completed 04/03/1999 Finance Charge Completed 02/27/1999 Finance Charge Completed 01/23/1999 Finance Charge Completed Encounters Type Date Location Provider Dx Diagnosis Office Visit 01/18/2015 Cardiology Office Leeann Roth MD 786.50 Pain Chest Unspec 11:39a Office Visit 02/11/2007 Orthopaedic Office Alexa Hernandez [phone] Epicondylitis 12:15p MD Devan Lateral Plan of Treatment No Information Available
--- OUTSIDE RECORDS SUMMARY | 2018-07-27 14:16 | XMS REPORT | Continuity of Care Document ---
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 Jazmine Cabrera PA-C Primary Care Physician Unavailable Payers Type Date Identification Numbers Payment Provider Subscriber Policy Number: [id number] Medicare Sanna Flores PayID: [id number] [address] [place] [address] Policy Number: [id number] [facility] Sanna Flores PayID: [id number] [address] [address] Advance Directives Description No Information Available Problems Description No Information Family History Date Family Member(s) Problem(s) Comments : (1962) Father due to Auto Accident Mother due to Heart Attack () Social History Type Date Description Comments Sex Unknown Marital Status Home Environment Lives With 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 ([facility] has established a 97.89% negative predictive value [...] kidneys. Procedures Date Code Description Status 02/08/2015 75372 [facility] [employer] Performance Continuous Completed Electrocardio [...] 12:15p MD Devan Lateral Plan of Treatment Future Appointment(s):09/24/2018 9:00 am - Janae Maciel PA at Pulmonology
--- OUTSIDE RECORDS SUMMARY | 2018-07-27 14:17 | XMS REPORT | Continuity of Care Document ---
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 Payers Type Date Identification Numbers Payment Provider Subscriber Effective: 2014 Policy Number: [id number] Medicare Sanna Flores Group Name: [facility] [address] PayID: [id number] [place] [address] Effective: 2014 Policy Number: [employer] Sanna Flores [id number] PayID: [id number] [address] [place] [address] Advance Directives Description No Information Available Problems [...] [place] Social History Type Date Description Comments Sex [...] Form Strength Qnty SIG Indications Ordering Provider Prednisone 06/28/ Hx Tablets 20mg 10tab 2 tablets R05 2018 - s by mouth Mike 07/03/ for 5 days DO 2019 Guaifenesin ER 06/22/ Active Tablets ER 1200mg 30tab 1 by mouth Sonu2018 12HR s twice Mike, daily DO Buspirone HCL 03/15/ Active Tablets 5mg 180ta take 1 F41.1 Sonu2017 bs tablet by Mike, mouth DO twice daily Ventolin HFA 08/03/ Active Aerosol 108(90Base 8gm 2 puffs Sonu2017 ) mcg/Act every 4-6 jaguar Mckeon as DO needed for cough, wheezing, shortness of breath Bupropion HCL 08/03/ Active Tablets ER 150mg 180ta 1 tablet Ascencio, ER (Smoking 2017 12HR bs twice Mike, Det) daily DO Fluticasone 05/11/ Active Suspension 50mcg/Act 15.80 two sprays H92.01 Ascencio, Propionate 2016 0ml in each Mike, nostril DO once daily Combivent 01/24/ Active Aerosol 20-100mcg/ 1unit 1 puff by J44.9 Ammon , Respimat 2014 Act s mouth four Daniel, times a DO day Trazodone HCL 11/07/ Active Tablets 50mg 90tab Take 1 G47.00 Ascencio, 2014 s Tablet AT Mike, Bedtime DO Omeprazole 08/07/ Active Capsules DR 40mg 180ca Take 2 K21.0 Ascencio, 2014 ps Capsules Mike, Every Day DO Losartan 06/13/ Active Tablets 100-25mg 90tab take one I10 Ascencio, Potassium/Hydr 2014 s tablet by Mike ochlorothiazid [...] Active Tablets 750mg 1 by mouth Sos [place] daily with [facility] Duloxetine HCL Active Caps DR 60mg 180caps Take 1 F41 Ascencio, Part Capsule .1 Mike, DO Twice Daily F33.1 Benzonatate Hx Capsules 200mg 30caps 1 capsule up Sonu 019 - to 3 times a Mike, day as needed DO 019 for cough Nitrofurantoin Monohyd Hx Capsules 100mg 14caps 1 by mouth R30.0 Digiovan Macro 018 - twice a day na, for 7 days Ibeth 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 , 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 Phenazopyridine HCL Hx Tablets 200mg 6tabs 1 by mouth R30.0 Digiovan 018 - 3x/day with na, food for 2 Ibeth 018 days , 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 Spiriva Respimat Hx Aerosol 2.5mcg 4gm 2 puffs in Ascencio, 018 - /Act the morning Mike, DO 018 Bupropion HCL ER (SR) Hx Tablets ER 150mg 60tabs Take One Z87.89 Ammon, 017 - 12HR Tablet By 1 Daniel Mouth Twice , DO 018 Daily F41.1 Bactrim DS 02/26/2016 - Hx Tablets 800-160mg 20tabs 1 by mouth N20.0 Ammon, 03/18/2016 twice a Daniel, rosalia DO Prednisone 11/20/2015 - Hx Tablets 10mg 30tabs 4 by mouth M54.31 Digiovanna, 12/02/2015 every d x Ibeth, 3 days 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 then 3 by mouth every d x 3 then 2 by mouth every d x 3 then 1 by mouth every d x 3 then stop Naproxen 11/06/2015 - Hx Tablets 550mg 60tabs take one M51.06 Ammon, Sodium 08/14/2016 tablet by Daniel, cristian DO twice a day with food Gabapentin [...] - Hx Tablets 50mg 30tabs take 1 06/09 Unknown 11/07/2014 tablet at bedtime (Total 75MG) Seroquel XR - Hx Tablets ER 50mg Unknown 12/20/2014 24HR Celebrex - Hx Capsules 200mg 1 PO Q D M51.06 Unknown 03/30/2017 Immunizations CPT Code Status Date Vaccine Reaction Lot # [id number] Given 04/01/2018 Pneumococcal 23 Immunization Adult Or Immunosuppressed Patient 12827 Given 04/01/2018 Fluzone Highdose Age 65 And Over Preservative & Antibiotic Free 10869 Given 07/29/2016 Pneumococcal 23 Immunization Im inj completed, Pt [id number] Adult Or Immunosuppressed tolerated well Patient 51924 Given 03/18/2016 Fluzone Highdose Age 65 And [place] Over Preservative & Antibiotic Free 71770 Given 03/21/2015 Prevnar 13 Pneumococal Given At Pharmacy Conjugate Vaccine [place] 87707 Given 03/21/2015 Fluzone Highdose Age 65 And Given At Pharmacy Over Preservative & [place] Antibiotic Free Vital Signs Date Vital Result Comment 06/28/2018 4:17pm Weight 160.00 lb Heart Rate [...] lb Heart Rate 62 /min BP Systolic 58375 mmHg Respiratory Rate 18 /min Height 64.25 [...] Ast 14 U/L 8-42 Basic (BMP) 03/05/2018 [facility] Sodium 143 mmol/L 135-146 3 Potassium 3.7 mmol/L 3.5-5.2 Chloride# 102 mmol/L 97-110 4 Carbon Dioxide 30 mmol/L 24-34 Glucose 111 mg/dL High 70-105 BUN 20 mg/dL 6-26 Creatinine 1.2 mg/dL 0.5-1.4 Calcium 9.5 mg/dL 8.5-10.2 Non Susie Egfr 47 Low >60 5 Susie Egfr 57 Low >60 6 Anion Gap 11 mmol/L 5-15 7 CBC with Auto Diff-fcmg 03/05/2018 [facility] WBC 6.4 K/uL 4.1-11.0 RBC 4.84 M/uL [...] Basophils 0.0 K/uL 0.0-0.3 Laboratory test 03/05/2018 [facility] TSH 2.61 uIU/mL 0.35-4.94 finding Laboratory test 02/23/2018 [facility] Urine Culture Microbiology res 8 finding <SEE NOTE> Laboratory test 02/09/2018 [facility] Urine Culture Microbiology res 9 finding <SEE NOTE> CBC With Auto Diff 07/24/2017 [facility] WBC 6.9 K/uL 4.1-11.0 10 RBC 5.02 [...] 8 mmol/L 5-15 15 Lipid Treatment 07/24/2017 [facility] Cholesterol 178 mg/dL 50-199 Triglycerides 201 mg/dL High 30-200 HDL 46 mg/dL 35-85 16 Chol/ HDL Ratio 3.9 ratio 3.7-5.6 VLDL 40 mg/dL High 2-29 LDL (Calc) 92 mg/dL 20-99 17 Alt 16 U/L 3-42 Ast 16 U/L 8-42 Laboratory 07/24/2017 [facility] Vitamin D 34 ng/mL 30-100 18 test finding 25 Hydroxy Urine Culture 07/23/2017 [facility] Urine KLEBSIELLA Abnormal 19, (315)- - Culture PNEUM <SEE 20 NOTE> Quantity 10,000 - 50,000 <SEE NOTE> 21 Ast-GN67 07/23/2017 [facility] Nitrofurantoin <=16 S (315)- - Trimethoprim/Sulfamethoxazole <=20 S Ampicillin >=32 R Cefazolin <=4 S Ampicillin/Sulbactam 4 S Ciprofloxacin <=0.25 S Piperacillin/Tazobactam 8 S Ceftazidime <=1 S Ceftriaxone <=1 S Cefepime <=1 S Levofloxacin <=0.12 S Imipenem <=0.25 S Gentamicin <=1 S Tobramycin <=1 S Urinalysis With 02/28/2017 [facility] Urine Color YELLOW Yellow 22 Microscopic (315)- - Urine Clarity CLOUDY Clear Urine Glucose - Dipstick NEGATIVE mg/dL Negative Urine Bilirubin - Dipstick NEGATIVE Negative Urine Ketone NEGATIVE mg/dL Negative Urine Specific [place] 1.010 N 1.010-1.030 Urine Blood LARGE Abnormal [...] CAT <SEE NOTE> 23 Urine Culture 02/28/2017 [facility] Urine Culture ESCHERICHIA COLI Abnormal 24 (315)- - Quantity > 100,000 CFU/mL N 25 Urine Culture URETHRAL RABIA Quantity > 100,000 CFU/mL N 26 Escherichia Coli 02/28/2017 [facility] Nitrofurantoin 64 I (315)- - Trimethoprim/Sulfamethoxazole >=320 R Ampicillin >=32 R Cefazolin <=4 S Ampicillin/Sulbactam >=32 R Ciprofloxacin <=0.25 S Piperacillin/Tazobactam <=4 S Ceftazidime <=1 S Ceftriaxone <=1 S Cefepime <=1 S Levofloxacin <=0.12 S Imipenem <=0.25 S Gentamicin >=16 R Tobramycin 8 I Laboratory test 01/28/2017 [facility] Urine Culture Microbiology res 27 finding <SEE NOTE> CBC With Auto Diff 01/28/2017 [facility] WBC 6.5 K/uL 4.1-11.0 RBC 4.94 M/uL [...] Gap 12 mmol/L 7-16 32 Protime 01/28/2017 [facility] Protime 12.3 seconds N 12.0-14.4 33 Lab Dept [phone] Inr 0.9 N 0.9-1.1 34 Laboratory test 01/28/2017 [facility] Act Partial 29.6 seconds N 23.4-35.0 35 finding Lab Dept Thrombo Time [phone] Urine Culture 12/18/2016 [facility] Urine URETHRAL 36 (315)- - Culture RABIA Quantity 10,000 - 50,000 <SEE NOTE> N 37 CBS W/Automated Diff 12/12/2016 [facility] White Blood 8.0 K/uL N [...] 40.4-72.8 Lymph % 27.8 % N 20.0-42.0 Bureau % 10.9 % N 4.3-13.2 Eo% 1.9 % N 0.0-6.6 Bas% 0.3 % N 0.0-1.1 Neut# 4.70 K/uL N 1.8-7.0 Lymph # 2.21 K/uL N 1.0-4.0 Bureau # 0.87 K/uL N 0.3-0.9 Eos # 0.15 K/uL N 0.0-0.5 Baso # 0.02 K/uL N 0.0-0.1 Laboratory test 12/12/2016 [facility] Lipase 104 U/L N 73-393 finding (315)- - Lactic Acid 12/12/2016 [facility] Lactic Acid 0.5 mmol/L N 0.4-1.9 (315)- - Lab Reflex >2.0 for Sepsis? Y Laboratory test 12/12/2016 [facility] Occult NEGATIVE Negative 39 finding (315)- - Blood,Stool Urinalysis With 12/12/2016 [facility] Urine Color YELLOW Yellow Microscopic (315)- - Urine Clarity CLEAR Clear Urine Glucose - Dipstick NEGATIVE mg/dL Negative Urine Bilirubin - Dipstick NEGATIVE Negative Urine Ketone NEGATIVE mg/dL Negative Urine Specific [place] 1.015 N 1.010-1.030 Urine Blood LARGE Abnormal [...] CAT <SEE NOTE> 40 Urine Culture 12/12/2016 [facility] Urine Culture ESCHERICHIA COLI Abnormal 41 (315)- - Quantity 10,000 - 50,000 <SEE NOTE> N 42 Urine Culture MIXED URETHRAL F <SEE NOTE> 43 Quantity 10,000 - 50,000 <SEE NOTE> N 44 Escherichia Coli 12/12/2016 [facility] Nitrofurantoin <= 16 S (315)- [...] Glucose 89 mg/dL 70-105 BUN 14 mg/dL 6-26 Creatinine 1.0 mg/dL 0.5-1.4 Calcium 9.4 mg/dL [...] Egfr >60 >60 59 Lipid Treatment 04/24/2015 [facility] Cholesterol 196 mg/dL 50-199 Triglycerides 141 mg/dL 30-150 HDL 43 mg/dL Low 45-85 60 Chol/ HDL Ratio 4.6 ratio 3.7-5.6 VLDL 28 mg/dL 2-29 LDL (Calc) 125 mg/dL 20-129 61 Alt 13 U/L 3-42 Ast 16 U/L 8-42 Laboratory test 04/24/2015 [facility] Vit D,25 Hydroxy 69 ng/mL 31-100 finding HCV Rna Quant PCR 02/23/2015 [facility] [place] HCV Rna Quant <1.2 logIU 62 [phone] PCR HCV Rna Real PCR <15 IU/mL [...] Egfr >60 >60 66 Laboratory test 01/18/2015 [facility] Troponin-I < 0.015 67 finding [...] Total Bilirubin 0.3 0.2-1.0 Laboratory test 01/17/2015 [facility] D-Dimer, 0.28 ug/ mL 68 finding (315)- - Quantitative CBC W/Automated 01/17/2015 [facility] White Blood Count 10.0 K/uL 3.1-10 [...] 40.4-72.8 Lymph % 46.3 % High 17.0-46.1 Bureau % 9.8 % 4.3-13.2 Eo% 2.0 % 0.0-6.6 Bas% 0.2 % 0.0-1.1 Neut# 4.18 K/uL 1.0-7.0 Lymph # 4.64 K/uL 1.8-7.0 Bureau # 0.98 K/uL High 0.3-0.9 Eos # 0.20 K/uL 0.0-0.5 Baso # 0.02 K/uL 0.0-0.1 Laboratory test 01/17/2015 [facility] Troponin-I < 0.015 69 finding (315)- - ng/mL Comprehensive 01/17/2015 [facility] Glucose 75 mg/dL 74-106 Metabolic [...] Midstream FINAL RESULT 50,000 CFU/ML Mixed urogenital rabia consistent with contamination. Request fresh specimen if [...] results FINAL RESULT 50,000 CFU/ML Mixed urogenital rabia consistent with contamination. Request fresh specimen if [...] SIDED PAIN/BACK, SENT BY CC 39 Method: Ry Salvador Hemoccult Card 40 URINE, CLEAN CATCH 41 ESCHERICHIA COLI 42 10,000 - 50,000 CFU/mL 43 MIXED URETHRAL RABIA 44 10,000 - 50,000 CFU/mL 45 SCHEDULE [...] enhanced report for this test go to: [email or web address] [email or web address] Performed by [facility], [address] [place] [id number] [email or web address], Ag Restrepo MD, Lab. Director 64 Concerning [...] DVT, or Pulmonary embolism as clinically indicated. ([facility] has established a 97.89% negative predictive [...] high: >189 Procedures Date Code Description Status 06/21/2018 54666 Measure Blood Oxygen Level Single Determination Completed 11/10/2017 51561307 Colonoscopy Completed 05/11/2017 91809 Remove Impact Cerumen Irrigation/Lavage Completed 04/28/2017 [id number] Mammogram Completed 09/04/2016 30804 Electrocardiogram Complete Completed 09/04/2016 66986 X-Ray Chest Two Views Frontal & Lateral Completed 03/24/2016 [id number] Mammogram Completed 05/10/2015 79641 X-Ray Hip Complete Two Views Completed 05/10/2015 09248 X-Ray Spine Lumbosacral Ap & Lateral Completed 03/12/2015 [id number] Mammogram Completed 08/07/2014 71807 Electrocardiogram Complete Completed 06/25/2011 207143971 Bone Mineral Density Test Completed Encounters Type Date Location Provider Dx Diagnosis Office Visit 06/21/2018 1:00p [facility] Jazmine Cabrera PA R05 Cough Z68.27 Body mass index (BMI) 27.0-27.9, adult Office Visit 03/15/2018 1:15p [facility] Jazmine Cabrera PA I10 Essential ( primary) hypertension E78.2 Mixed hyperlipidemia F41.1 Generalized anxiety disorder F33.1 Major depressive disorder, recurrent, moderate J44.9 Chronic obstructive pulmonary disease, unspecified K21.0 Gastro-esophageal reflux disease with esophagitis R73.9 Hyperglycemia, unspecified M54.2 Cervicalgia Z68.28 Body mass index (BMI) 28.0-28.9, adult Office Visit 02/23/2018 10:30a [facility] Jazmine Cabrera PA M54.2 Cervicalgia R41.82 Altered mental status, unspecified Z68.28 Body mass index (BMI) 28.0-28.9, adult Office Visit 02/09/2018 2:30p [facility] Digiovanna, Ibeth, R30.0 Dysuria 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 Office Visit 11/11/2017 3:30p [facility] Jazmine Cabrera PA J44.9 Chronic obstructive pulmonary disease, unspecified F33.1 Major depressive disorder, recurrent, moderate E78.2 Mixed hyperlipidemia I10 Essential (primary) hypertension F17.210 Nicotine dependence, cigarettes, uncomplicated K21.0 Gastro-esophageal reflux disease with esophagitis F41.1 Generalized anxiety disorder Z68.27 Body mass index (BMI) 27.0-27.9, adult Office Visit 08/03/2017 11:00a [facility] Jazmine Cabrera PA J44.9 Chronic obstructive pulmonary disease, unspecified F33.1 Major depressive disorder, recurrent, moderate E78.2 Mixed hyperlipidemia E55.9 Vitamin D deficiency, unspecified I10 Essential (primary) hypertension F17.210 Nicotine dependence, cigarettes, uncomplicated K21.0 Gastro-esophageal reflux disease with esophagitis F41.9 Anxiety disorder, unspecified F10.10 Alcohol abuse, uncomplicated F41.1 Generalized anxiety disorder Z68.27 Body mass index (BMI) 27.0-27.9, adult Office Visit 05/11/2017 4:00p [facility] Jazmine Cabrera PA H92.01 Otalgia, RIGHT ear H61.21 Impacted cerumen, RIGHT ear Office Visit 03/30/2017 10:00a [facility] Daniel Verde DO I10 Essential ( primary) [...] of colonic polyps Office Visit 01/28/2017 11:00a [facility] Jazmine Cabrera PA Z01.818 Encounter for other preprocedural examination R31.9 Hematuria, unspecified Office Visit 11/27/2016 10:00a [facility] Daniel Verde DO I10 Essential ( primary) [...] Primary generalized (osteo)arthritis Office Visit 11/24/2016 1:45p [facility] Daniel Verde DO F41.1 Generalized anxiety disorder Z87.891 Personal history of nicotine dependence Office Visit 09/04/2016 2:00p [facility] Daniel Verde, Z01.818 Encounter for other DO [...] Primary generalized (osteo)arthritis Office Visit 07/29/2016 11:15a Daniel Albarran DO I10 Essential ( primary) hypertension E78.2 [...] (BMI) 28.0-28.9, adult Office Visit 03/18/2016 1:45p [facility] Daniel Verde DO I10 Essential ( primary) [...] neoplasm of breast Office Visit 02/26/2016 2:30p [facility] Daniel Verde, DO N20.0 Calculus of kidney R30.0 Dysuria Office Visit 12/18/2015 1:45p [facility] Daniel Verde, 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59 Pain Chest Other 530.11 Esophagitis Reflux 496 COPD Airway Obstruction Chronic Not Class Elsewhere Office Visit 12/28/2014 1:15p [facility] Daniel Verde, DO 300.02 Anxiety Disorder Generalized 305.1 Tobacco Use Disorder 305.00 Alcohol Abuse Unspec 401.1 Hypertension Benign 272.2 Hyperlipidemia Mixed 530.81 Esophageal Reflux 553.3 Hernia Diaphragmatic 496 COPD Airway Obstruction Chronic Not Class Elsewhere 627.9 Menopausal & Postmenopausal Disorder Unspec 296.32 Depressive Disorder Major Recurrent Moderate 780.52 Sleep Disturbance, Insomnia Unspecified 268.9 Vitamin D Deficiency Unspec Office Visit 12/20/2014 1:00p [facility] Ibeth Graf, 300.02 Anxiety Disorder 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 Generalized 305.1 Tobacco Use Disorder 305.00 Alcohol Abuse Unspec Office Visit 08/22/2014 1:00p [facility] Daniel Verde DO 401.1 Hypertension Benign 272.2 Hyperlipidemia Mixed 530.81 Esophageal Reflux 553.3 Hernia Diaphragmatic 496 COPD Airway Obstruction Chronic Not Class Elsewhere 627.9 Menopausal & Postmenopausal Disorder Unspec 296.32 Depressive Disorder Major Recurrent Moderate 300.01 Panic Disorder W/O Agoraphobia 300.02 Anxiety Disorder Generalized 780.52 Sleep Disturbance, Insomnia Unspecified 305.1 Tobacco Use Disorder 305.00 Alcohol Abuse Unspec Office Visit 08/07/2014 2:30p [facility] Daniel Verde DO 553.3 Hernia Diaphragmatic 530.11 Esophagitis Reflux 786.59 Pain Chest Other Plan of Treatment Future Appointment(s):07/28/2018 8:05 am - Schedule, Laboratory at [facility]2018 10:00 am - Jazmine Cabrera PA at [facility]06/28/2018 - Jazmine Cabrera PAR05 CoughNew Medication:Prednisone 20 mg - 2 tablets by mouth for 5 daysComments: Will treat with prednisoneCall with worsening/persisting symptomsFollow up: PrnR91.1 Solitary pulmonary noduleComments:Multiple pulmonary nodulesWill refer to pulm for eval and possible biopsyReferral:Jeffrey Stanton, Pulmonary DdgqsuwiW97.27 Body mass index (BMI) 27.0-27.9, adult
[2018-07-27 14:51] VITALS: BP 126/70
--- NOTE | 2018-07-27 15:38 | UC ---
Respiratory Complaint HPI - HPI Summary HPI Summary: The patient is a 67-year-old female who has had a 6 week history of trouble breathing. She has seen her primary care provider many times. She thinks she has been on 3 rounds of steroids. She is a smoker. She has a diagnosis of COPD. She had a recent chest x-ray that showed a small left pulmonary nodule. She states about a week ago she had pulmonary functions which were reported as not showing any breathing problems. She has a long history of hoarseness which is attributed to her smoking. He states her hoarseness has worsened in the past 6 weeks. He has had no trouble eating or drinking. She thinks she may have lost a couple pounds recently. She has a history of alcoholism asthma and is in remission. He has a history of GERD as well as a hiatal hernia. 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 She denies any leg pain or swelling. She denies any chest pain. She states that when she goes to her AA meetings people told her that she is breathing a lot louder than normal. - History of Current Complaint Chief Complaint: UCGeneralIllness Stated Complaint: TROUBLE BREATHING, CONGESTION Time Seen by Provider: 07/27/18 15:11 Hx Obtained From: Patient Hx Last Menstrual Period: N/A Onset/Duration: Gradual Onset, Lasting Weeks - 6 Timing: Constant Severity Initially: Mild Severity Currently: Moderate Pain Intensity: 3 Pain Scale Used: 0-10 Numeric Character: Cough: Nonproductive Aggravating Factors: Nothing Alleviating Factors: Nothing Associated Signs And Symptoms: Positive: Wheezing, Nasal Congestion, Hoarseness. Negative: Dyspnea, Fever, Chills, Pleuritic Chest Pain, Hemoptysis , Dizziness, Calf Pain, Calf Swelling, Edema, URI, Sinus Discomfort - Allergies/Home Medications Allergies/Adverse Reactions: Allergies Allergy/AdvReac Type Severity Reaction Status Date / Time codeine Allergy "passed Verified 07/27/18 14:37 out" diphenhydramine Allergy Swelling Verified 07/27/18 14:37 [From Benadryl] PMH/Surg Hx/FS Hx/Imm Hx Previously Healthy: Yes Endocrine History: Dyslipidemia Respiratory History: COPD GI/ History: Gastroesophageal Reflux - Surgical History Surgical History: Yes Surgery Procedure, Year, and Place: EXPLORATORY LAPAROTOMY. APPENDECTOMY. CARPAL TUNNEL RELEASE. TUBAL LIGATION. PER DR. BRADLEY'S NOTE. GALL BLADDER REMOVAL - Family History Known Family History: Positive: None - Social History Alcohol Use: None Alcohol Amount: Sober 9 years Substance Use Type: None Smoking Status (MU): Light Every Day Tobacco Smoker Type: Cigarettes Amount Used/How Often: 1/2 PPD Length of Time of Smoking/Using Tobacco: 52 Years Have You Smoked in the Last Year: Yes When Did the Patient Quit Smoking/Using Tobacco: 12/03/16 Cessation Counseling: Patient Advised to Stop - Immunization History Most Recent Influenza Vaccination: 04/21/17 Most Recent Tetanus Shot: UTD Most Recent Pneumonia Vaccination: APR 2015 Vaccination Up to Date: Yes Review of Systems All Other Systems Reviewed And Are Negative: Yes Constitutional: Positive: Negative Skin: Positive: Negative Eyes: Positive: Negative ENT: Positive: Negative, Nasal Discharge, Sinus Congestion Respiratory: Positive: Cough Cardiovascular: Positive: Negative Gastrointestinal: Positive: Negative Genitourinary: Positive: Negative Motor: Positive: Negative Neurovascular: Positive: Negative Musculoskeletal: Positive: Negative Neurological: Positive: Negative Psychological: Positive: Negative Physical Exam Triage Information Reviewed: Yes Appearance: Well-Appearing, No Pain Distress, Well-Nourished Vital Signs: Initial Vital Signs Temp 97.3 F 07/27/18 14:41 Pulse 82 07/27/18 14:41 Resp 15 07/27/18 14:41 BP 126/70 07/27/18 14:41 Pulse Ox 98 07/27/18 14:41 Vital Signs Reviewed: Yes Eyes: Positive: Conjunctiva Clear ENT: Positive: Nasal congestion, Hoarse voice, Uvula midline. Negative: Hearing grossly normal, Nasal drainage, TMs normal, Tonsillar swelling, Tonsillar exudate, Trismus, Muffled voice Neck: Positive: Supple, Nontender, Enlarged Nodes @ - ? small right cervical LNs Respiratory: Positive: Lungs clear, Normal breath sounds, No respiratory distress, No accessory muscle use, Other: - Pt with some supra sternal retractions with inhalation Cardiovascular: Positive: RRR, No Murmur Neurological: Positive: Alert Psychological Exam: Normal Skin Exam: Normal UC Diagnostic Evaluation - Laboratory O2 Sat by Pulse Oximetry: 98 - normal/not hypoxic Respiratory Course/Dx - Differential Dx/Diagnosis Provider Diagnosis: Hoarseness, Vocal cord dysfunction, Smoker Discharge - Sign-Out/Discharge Documenting (check all that apply): Patient Departure All imaging exams completed and their final reports reviewed: No Studies - Discharge Plan Condition: Stable Disposition: HOME Referrals: Dragan Rogers MD [Medical Doctor] - As Soon As Possible Additional Instructions: Continue current treatment I suspect your breathing problems are in you upper airway as opposed to your lungs You may have VOCAL CORD DYSFUNCTION I suggest you see an ENT specialist To ER for new or worsening symptoms - Billing Disposition and Condition Condition: STABLE Disposition: Home
== END 2018-07-27 15:43 | disposition home or self-care (01) ==
LOC: UCCORT 14:02
DX: R49.0 Dysphonia (principal); R09.81 Nasal congestion; J38.3 Other diseases of vocal cords; J44.9 Chronic obstructive pulmonary disease, unspecified; F17.210 Nicotine dependence, cigarettes, uncomplicated; Z88.5 Allergy status to narcotic agent; Z88.8 Allergy status to other drugs, medicaments and biological substances
CPT/HCPCS: 99211; G0463